=== PATIENT | female | born 1975 | race Caucasian/White ===

== ENCOUNTER 2016-06-02 17:52 | Emergency (ER) | payer BC ==
--- NOTE | 2016-06-02 18:25 | ER Document Report ---
ED Medical Screen (RME) - General Stated Complaint: COUGH Mode of Arrival: Ambulatory Information source: Patient Notes: Patient presents to the ED for complaints of cough and fever for the past 5 days. She reports she's been vomiting with her cough sometimes. She reports cough is worse at night. Denies history of asthma COPD. TRAVEL OUTSIDE OF THE [place] IN LAST 30 DAYS: No - Related Data Allergies/Adverse Reactions: Penicillins Allergy (Verified 02/28/15 12:55) Sulfa (Sulfonamide Antibiotics) Allergy (Verified 02/28/15 12:55) tramadol [Tramadol] Allergy (Verified 02/28/15 12:55) Past Medical History - Past Medical History Cardiac Medical History: Reports: Hx Hypertension Denies: Hx Coronary Artery Disease, Hx Heart Attack Pulmonary Medical History: Denies: Hx Asthma, Hx Bronchitis, Hx COPD, Hx Pneumonia Neurological Medical History: Reports: Hx Migraine. Denies: Hx Cerebrovascular Accident, Hx Seizures Endocrine Medical History: Reports: Hx Hypothyroidism Musculoskeltal Medical History: Denies Hx Arthritis, Reports Hx Musculoskeletal Trauma Psychiatric Medical History: Reports: Hx Anxiety - with panic attacks Past Surgical History: Reports: Hx Cholecystectomy, Hx Orthopedic Surgery - left knee - Immunizations Immunizations up to date: Yes Hx Diphtheria, Pertussis, Tetanus Vaccination: Yes
[2016-06-02] MEDS ORDERED: HYDROCODONE/ACETAMINOPHEN 5-325 MG TABLET PO ONE (21:39)
[2016-06-02] MEDS ORDERED: HYDROCODONE/ACETAMINOPHEN 5-325 MG 6 TAB/DSPK PO PRN (21:39)
--- NOTE | 2016-06-02 21:43 | ER Document Report ---
ED Respiratory Problem - General Chief Complaint: Cough Stated Complaint: COUGH Time seen by provider: 21:30 Mode of Arrival: Ambulatory Notes: Patient is a 41 year old female that comes to the ED for chief complaint of cough, sinus congestion, and chills. Symptoms started 5 days ago. Cough worse at night, patient reports pressure in her sinuses, patient has green sputum production. She denies smoking, asthma, only reported past medical history is hypertension. Patient states she is taking Benadryl and Mucinex. TRAVEL OUTSIDE OF THE [place] IN LAST 30 DAYS: No - Related Data Allergies/Adverse Reactions: Penicillins Allergy (Verified 06/02/16 18:26) Sulfa (Sulfonamide Antibiotics) Allergy (Verified 06/02/16 18:26) tramadol [Tramadol] Allergy (Verified 06/02/16 18:) Past Medical History - General Information source: Patient - Social History Smoking Status: Never Smoker Chew tobacco use (# tins/day): No Frequency of alcohol use: None Drug Abuse: None Lives with: Family Family History: Arthritis, DM Patient has suicidal ideation: No Patient has homicidal ideation: No - Past Medical History Cardiac Medical History: Reports: Hx Hypertension Denies: Hx Coronary Artery Disease, Hx Heart Attack Pulmonary Medical History: Denies: Hx Asthma, Hx Bronchitis, Hx COPD, Hx Pneumonia Neurological Medical History: Reports: Hx Migraine. Denies: Hx Cerebrovascular Accident, Hx Seizures Endocrine Medical History: Reports: Hx Hypothyroidism Renal/ Medical History: Denies: Hx Peritoneal Dialysis Musculoskeltal Medical History: Denies Hx Arthritis, Reports Hx Musculoskeletal Trauma Psychiatric Medical History: Reports: Hx Anxiety - with panic attacks Past Surgical History: Reports: Hx Cholecystectomy, Hx Orthopedic Surgery - left knee - Immunizations Immunizations up to date: Yes Hx Diphtheria, Pertussis, Tetanus Vaccination: Yes Review of Systems - Review of Systems Constitutional: See HPI EENT: See HPI Cardiovascular: No symptoms reported Respiratory: See HPI Gastrointestinal: No symptoms reported Genitourinary: No symptoms reported Female Genitourinary: No symptoms reported Musculoskeletal: No symptoms reported Skin: No symptoms reported Hematologic/Lymphatic: No symptoms reported Neurological/Psychological: No symptoms reported Physical Exam - Vital signs Vitals: Temp Pulse Resp BP Pulse Ox 98.1 F 81 20 176/110 H 96 06/02/16 18:26 06/02/16 18:26 06/02/16 18:26 06/02/16 18:26 06/02/16 18:26 Interpretation: Normal - General General appearance: Appears well, Alert In distress: None - HEENT Head: Normocephalic, Atraumatic Eyes: Normal Conjunctiva: Normal Extraocular movements intact: Yes Eyelashes: Normal Pupils: PERRL Sinus: Maxillary - Tenderness over bilateral maxillary sinuses, slightly worse on the left Nasal: Normal Mouth/Lips: Normal Mucous membranes: Normal Pharynx: Normal - Respiratory Respiratory status: No respiratory distress Chest status: Nontender Breath sounds: Nonproductive cough - Occasional. No: Rhonchi, Wheezing Chest palpation: Normal - Cardiovascular Rhythm: Regular. No: Tachycardia Heart sounds: Normal auscultation, S1 appreciated, S2 appreciated Murmur: No - Abdominal Inspection: Normal Distension: No distension Bowel sounds: Normal Tenderness: Nontender. No: Tender, Guarding Organomegaly: No organomegaly - Back Back: Normal, Nontender - Extremities General upper extremity: Normal inspection, Nontender, Normal color, Normal ROM , Normal temperature General lower extremity: Normal inspection, Nontender, Normal color, Normal ROM , Normal temperature, Normal weight bearing. No: Marshall's sign - Neurological Neuro grossly intact: Yes Cognition: Normal Orientation: AAOx4 Tanya Coma Scale Eye Opening: Spontaneous Tanya Coma Scale Verbal: Oriented [place] Coma Scale Motor: Obeys Commands [place] Coma Scale Total: 15 Speech: Normal Cranial nerves: Normal Cerebellar coordination: Normal Motor strength normal: LUE, RUE, LLE, RLE Additional motor exam normals: Equal crossing watchman Sensory: Normal - Psychological Associated symptoms: Normal affect, Normal mood - Skin Skin Temperature: Warm Skin Moisture: Dry Skin Color: Normal Course - Re-evaluation Re-evalutation: No respiratory distress, no wheezing, clear lungs on auscultation, occasional nonproductive cough, patient sounds congested, patient has tenderness over the maxillary sinuses. - Vital Signs Vital signs: Temp Pulse Resp BP Pulse Ox 98 F 87 20 147/89 H 99 06/02/16 22:00 06/02/16 22:00 06/02/16 22:00 06/02/16 22:00 06/02/16 22:00 Discharge - Discharge Clinical Impression: Cough Sinusitis Qualifiers: Sinusitis location: maxillary Chronicity: acute Recurrence: not specified as recurrent Qualified Code(s): J01.00 - Acute maxillary sinusitis, unspecified Condition: Stable Disposition: HOME, SELF-CARE Additional Instructions: The chest x-ray does not show pneumonia. Take the azithromycin antibiotic as directed along with the Flonase and dose pack as directed for sinusitis, congestion, and cough. Continue Benadryl and Mucinex. Follow-up with primary care. Return to emergency department for concerning or worsening symptoms. Prescriptions: Azithromycin [Zithromax 250 mg Tablet] 250 mg PO ASDIR PRN #6 tablet PRN Reason: Fluticasone Propionate [Flonase Nasal [place] 50 Mcg/[place] 16 gm] 2 sprays NASL Q12 #1 inhaler
[2016-06-02 22:12] VITALS: BP 147/89
== END 2016-06-02 22:12 | disposition home or self-care (01) ==
LOC: ER 17:52
DX: J01.00 Acute maxillary sinusitis, unspecified (principal); R05 Cough; R09.81 Nasal congestion; I10 Essential (primary) hypertension
CPT/HCPCS: 71020; 99283

== ENCOUNTER 2016-07-09 14:50 | Emergency (ER) | payer BC ==
[2016-07-09] MEDS ORDERED: NORMAL SALINE 1000 ML 1,000 ML IV ONE (14:56)
[2016-07-09] MEDS ORDERED: ONDANSETRON 4 MG TAB.RAPDIS PO ONE (14:56)
--- NOTE | 2016-07-09 14:56 | ER Document Report ---
ED Medical Screen (RME) - General Stated Complaint: DIZZY/NAUSEA Mode of Arrival: Ambulatory Information source: Patient Notes: Patient presents complaining of dizziness and lightheadedness that started today. Patient complains of right-sided abdominal cramping that started today. Patient with nausea, vomiting 2 and diarrhea 4. Patient reports low-grade fever. hx: Migraines I have greeted and performed a rapid initial assessment of this patient. A comprehensive ED assessment and evaluation of the patient, analysis of test results and completion of the medical decision making process will be conducted by additional ED providers. TRAVEL OUTSIDE OF THE [place] IN LAST 30 DAYS: No - Related Data Allergies/Adverse Reactions: Penicillins Allergy (Verified 07/09/16 14:54) Sulfa (Sulfonamide Antibiotics) Allergy (Verified 07/09/16 14:54) tramadol [Tramadol] Allergy (Verified 07/09/16 14:54) Past Medical History - Past Medical History Cardiac Medical History: Reports: Hx Hypertension Denies: Hx Coronary Artery Disease, Hx Heart Attack Pulmonary Medical History: Denies: Hx Asthma, Hx Bronchitis, Hx COPD, Hx Pneumonia Neurological Medical History: Reports: Hx Migraine. Denies: Hx Cerebrovascular Accident, Hx Seizures Endocrine Medical History: Reports: Hx Hypothyroidism Renal/ Medical History: Denies: Hx Peritoneal Dialysis Musculoskeltal Medical History: Denies Hx Arthritis, Reports Hx Musculoskeletal Trauma Psychiatric Medical History: Reports: Hx Anxiety - with panic attacks Past Surgical History: Reports: Hx Cholecystectomy, Hx Orthopedic Surgery - left knee - Immunizations Immunizations up to date: Yes Hx Diphtheria, Pertussis, Tetanus Vaccination: Yes Physical Exam - Cardiovascular Rhythm: Tachycardia Heart sounds: S1 appreciated, S2 appreciated Murmur: No
[2016-07-09 15:22] LABS: ABSOLUTE BASOPHILS # (AUTO) 0.1 10^3/uL (0.0-0.2); ABSOLUTE EOSINOPHILS # (AUTO) 0.1 10^3/uL (0.0-0.6); ABSOLUTE LYMPHOCYTES (AUTO) 2.2 10^3/uL (0.5-4.7); ABSOLUTE NEUT (AUTO) 4.8 10^3/uL (1.7-8.2); BASOPHILS % (AUTO) 0.9 % (0-2); EOSINOPHILS % (AUTO) 1.1 % (0-6); HEMOGLOBIN 16.5 g/dL (12.0-15.5); HGB HCT DIFFERENCE 1.5; MEAN CORPUSCULAR HEMOGLOBIN 29.3 pg (27.0-33.4); MEAN CORPUSCULAR HGB CONC 34.4 g/dL (32.0-36.0); MEAN CORPUSCULAR VOLUME 85 fl (80-97); MONOCYTES % (AUTO) 12.6 % (3-13); RED BLOOD COUNT 5.64 10^6/uL (3.72-5.28); RED CELL DISTRIBUTION WIDTH 13.8 % (11.5-14.0); SEGMENTED NEUTROPHILS % (AUTO) 58.4 % (42-78); WHITE BLOOD COUNT 8.2 10^3/uL (4.0-10.5)
[2016-07-09 15:29] LABS: APPEARANCE,URINE CLOUDY; BILIRUBIN,URINE NEGATIVE (NEGATIVE); GLUCOSE, URINE NEGATIVE (NEGATIVE); KETONES,URINE NEGATIVE (NEGATIVE); LEUKOCYTE ESTERASE,URINE TRACE (NEGATIVE); NITRITE,URINE NEGATIVE (NEGATIVE); PROTEIN,URINE 30 mg/dL (NEGATIVE); URINE SPECIFIC GRAVITY 1.031; UROBILINOGEN,URINE NEGATIVE mg/dL (<2.0)
[2016-07-09 15:45] LABS: ALANINE AMINOTRANSFERASE 60 U/L (9-52); ALBUMIN 4.2 g/dL (3.5-5.0); ALKALINE PHOSPHATASE 79 U/L (38-126); ANION GAP 13 (5-19); ASPARTATE AMINO TRANSFERASE 30 U/L (14-36); BILIRUBIN,TOTAL 0.5 mg/dL (0.2-1.3); BLOOD UREA NITROGEN 16 mg/dL (7-20); CALCIUM 10.5 mg/dL (8.4-10.2); CARBON DIOXIDE 28 mmol/L (22-30); CHLORIDE 100 mmol/L (98-107); CREATININE RESULT 0.89 mg/dL (0.52-1.25); GLUCOSE 126 mg/dL (75-110); LIPASE 107.7 U/L (23-300); POTASSIUM 4.9 mmol/L (3.6-5.0); SODIUM 140.9 mmol/L (137-145); TOTAL PROTEIN 8.1 g/dL (6.3-8.2)
[2016-07-09] MEDS ORDERED: NORMAL SALINE 1000 ML 2,000 ML IV ONE (16:15)
--- NOTE | 2016-07-09 17:40 | ER Document Report ---
ED General <CALIN BAZZILINE - Last Filed: 07/09/16 19:32> - General Time seen by provider: 16:15 Mode of Arrival: Ambulatory Information source: Patient TRAVEL OUTSIDE OF THE [place] IN LAST 30 DAYS: No <NATALY GIORDANO - Last Filed: 07/09/16 20:50> - General Chief Complaint: Nausea/Vomiting/Diarrhea Stated Complaint: DIZZY/NAUSEA Notes: 41-year-old female complaining of head congestion, cough for several days with dizziness and lightheadedness that started today. Patient complains of right- sided abdominal cramping that started today every few hours lasting 2-3 minutes. Patient with nausea, vomiting 2 and diarrhea 4. Low grade fever. No history of Crohn's, colitis. Parent have diverticulitis. (NATALY GIORDANO) - Related Data Allergies/Adverse Reactions: Penicillins Allergy (Verified 07/09/16 14:54) Sulfa (Sulfonamide Antibiotics) Allergy (Verified 07/09/16 14:54) tramadol [Tramadol] Allergy (Verified 07/09/16 14:54) Past Medical History - General Information source: Patient - Social History Smoking Status: Never Smoker Chew tobacco use (# tins/day): No Frequency of alcohol use: None Drug Abuse: None Lives with: Family Family History: Arthritis, DM Patient has suicidal ideation: No Patient has homicidal ideation: No - Past Medical History Cardiac Medical History: Reports: Hx Hypertension Neurological Medical History: Reports: Hx Migraine Endocrine Medical History: Reports: Hx Hypothyroidism Renal/ Medical History: Denies: Hx Peritoneal Dialysis Musculoskeltal Medical History: Reports Hx Musculoskeletal Trauma Psychiatric Medical History: Reports: Hx Anxiety - with panic attacks Past Surgical History: Reports: Hx Cholecystectomy, Hx Orthopedic Surgery - left knee - Immunizations Immunizations up to date: Yes Hx Diphtheria, Pertussis, Tetanus Vaccination: Yes <NATALY GIORDANO - Last Filed: 07/09/16 20:50> Review of Systems - Review of Systems Constitutional: See HPI EENT: See HPI Cardiovascular: No symptoms reported Respiratory: See HPI Gastrointestinal: See HPI Genitourinary: No symptoms reported Female Genitourinary: No symptoms reported Musculoskeletal: No symptoms reported Skin: No symptoms reported Hematologic/Lymphatic: No symptoms reported Neurological/Psychological: No symptoms reported <NATALY GIORDANO - Last Filed: 07/09/16 20:50> Physical Exam - Vital signs Interpretation: Hypertensive, Tachycardic - General General appearance: Alert - HEENT Head: Normocephalic, Atraumatic Eyes: Normal Conjunctiva: Normal Pupils: PERRL Mucous membranes: Dry Pharynx: Normal Neck: Supple. No: Lymphadenopathy - Respiratory Respiratory status: No respiratory distress Chest status: Nontender Breath sounds: Normal Chest palpation: Normal - Cardiovascular Rhythm: Regular Heart sounds: Normal auscultation Murmur: No - Abdominal Inspection: Normal Distension: No distension Bowel sounds: Normal Tenderness: Nontender. No: Tender Organomegaly: No organomegaly - Back Back: Normal, Nontender. No: CVA tenderness - Extremities General upper extremity: Normal inspection, Nontender, Normal color, Normal ROM , Normal temperature General lower extremity: Normal inspection, Nontender, Normal color, Normal ROM , Normal temperature, Normal weight bearing. No: Marshall's sign - Neurological Neuro grossly intact: Yes Cognition: Normal Orientation: AAOx4 [place] Coma Scale Eye Opening: Spontaneous [place] Coma Scale Verbal: Oriented [place] Coma Scale Motor: Obeys Commands [place] Coma Scale Total: 15 Speech: Normal Motor strength normal: LUE, RUE, LLE, RLE Sensory: Normal - Psychological Associated symptoms: Normal affect, Normal mood - Skin Skin Temperature: Warm Skin Moisture: Dry Skin Color: Normal Skin irregularity: negative: Rash <NATALY GIORDANO - Last Filed: 07/09/16 20:50> - Vital signs Vitals: Temp Pulse Resp BP Pulse Ox 97.9 F 126 H 18 158/100 H 96 07/09/16 14:55 07/09/16 14:55 07/09/16 14:55 07/09/16 14:55 07/09/16 14:55 (SIMÓN BAZZI) (NATALY GIORDANO) Course - Laboratory Result Diagrams: 07/09/16 15:00 07/09/16 15:00 <SIMÓN BAZZI - Last Filed: 07/09/16 19:32> - Laboratory Result Diagrams: 07/09/16 15:00 07/09/16 15:00 <NATALY GIORDANO - Last Filed: 07/09/16 20:50> - Re-evaluation Re-evalutation: 07/09/16 19:33 Patient requested a prescription for Zofran before being discharged. She had been given Zofran during her visit here so the prescription was written. ( SIMÓN BAZZI) 07/09/16 17:41 Patient feels a lot better to the IV fluid. She is still having the right upper quadrant to right lower quadrant abdominal cramp but it only lasts 1 minute she's had it twice since I first evaluated her. Abdomen is still nontender. 1+ bacteria in the urine and the urine culture is pending. 07/09/16 18:30 Consult STEPHANI Gutierrez to go home. vitals stable. (NATALY GIORDANO) - Vital Signs Vital signs: Temp Pulse Resp BP Pulse Ox 97.7 F 83 15 137/68 H 100 07/09/16 19:19 07/09/16 19:19 07/09/16 19:19 07/09/16 19:19 07/09/16 19:19 (SIMÓN BAZZI) (NATALY GIORDANO) - Laboratory Laboratory results interpreted by me: 07/09/16 07/09/16 07/09/16 15:00 15:00 15:00 RBC 5.64 H Hgb 16.5 H Hct 48.0 H Glucose 126 H Calcium 10.5 H ALT 60 H Urine Protein 30 H Urine Blood SMALL H Ur Leukocyte Esterase TRACE H Urine Ascorbic Acid 20 H (SIMÓN BAZZI) (NATALY GIORDANO) Discharge <SIMÓN BAZZI - Last Filed: 07/09/16 19:32> <NATALY GIORDANO - Last Filed: 07/09/16 20:50> - Discharge Clinical Impression: Nausea vomiting and diarrhea, crampy abdominal pain Upper respiratory infection Qualifiers: URI type: unspecified URI Qualified Code(s): J06.9 - Acute upper respiratory infection, unspecified Urinary tract infection Qualifiers: Urinary tract infection type: site unspecified Hematuria presence: without hematuria Qualified Code(s): N39.0 - Urinary tract infection, site not specified Condition: Good Disposition: HOME, SELF-CARE Instructions: Urinary Tract Infection ([facility]), Intravenous (IV) Fluids ([facility]), Vomiting ([facility]), Diarrhea, Nonspecific ([facility]), Ciprofloxacin ([facility]) Additional Instructions: plenty of fluids advance diet as tolerated to er if worse urine cutlure is pending Prescriptions: Ciprofloxacin HCl [Cipro 500 mg Tablet] 500 mg PO BID #6 tablet Ondansetron [Zofran Odt 4 mg Tablet] 1 tab PO Q6H #15 [email or web address] Referrals: SIOMARA GILL PA [Primary Care Provider] - Follow up as needed
[2016-07-09] MEDS ORDERED: CIPROFLOXACIN HCL 500 MG TABLET PO ONE (17:46)
[2016-07-09 19:21] VITALS: BP 137/68
== END 2016-07-09 19:05 | disposition home or self-care (01) ==
LOC: ER 14:50
DX: J06.9 Acute upper respiratory infection, unspecified (principal); N39.0 Urinary tract infection, site not specified; R11.2 Nausea with vomiting, unspecified; R19.7 Diarrhea, unspecified; R42 Dizziness and giddiness; R09.81 Nasal congestion; R05 Cough
CPT/HCPCS: 99284; 36415; 87086; 83690; 84703; 85025; 80053; 81001; S0119; J7030

== ENCOUNTER 2016-07-20 19:42 | Emergency (ER) | payer BC ==
--- NOTE | 2016-07-20 20:12 | ER Document Report ---
ED Medical Screen (RME) - General Stated Complaint: BACK PAIN Notes: 41 yo female c/o pain to left upper back, under shoulder blade. pain started after bending over to shave her legs. pain is aggrevated with any movement, deep breathing. no fever, no cough. no relief with naprosyn + hx/o HTN, no meds. TRAVEL OUTSIDE OF THE [place] IN LAST 30 DAYS: No - Related Data Allergies/Adverse Reactions: Penicillins Allergy (Verified 07/09/16 14:54) Sulfa (Sulfonamide Antibiotics) Allergy (Verified 07/09/16 14:54) tramadol [Tramadol] Allergy (Verified 07/09/16 14:54) Past Medical History - Past Medical History Cardiac Medical History: Reports: Hx Hypertension Denies: Hx Coronary Artery Disease, Hx Heart Attack Pulmonary Medical History: Denies: Hx Asthma, Hx Bronchitis, Hx COPD, Hx Pneumonia Neurological Medical History: Reports: Hx Migraine. Denies: Hx Cerebrovascular Accident, Hx Seizures Endocrine Medical History: Reports: Hx Hypothyroidism Renal/ Medical History: Denies: Hx Peritoneal Dialysis Musculoskeltal Medical History: Denies Hx Arthritis, Reports Hx Musculoskeletal Trauma Psychiatric Medical History: Reports: Hx Anxiety - with panic attacks Past Surgical History: Reports: Hx Cholecystectomy, Hx Orthopedic Surgery - left knee - Immunizations Immunizations up to date: Yes Hx Diphtheria, Pertussis, Tetanus Vaccination: Yes Physical Exam - Vital signs Vitals: Temp Pulse Resp BP Pulse Ox 97.7 F 106 H 16 150/88 H 98 07/20/16 19:45 07/20/16 19:45 07/20/16 19:45 07/20/16 19:45 07/20/16 19:45 Course - Vital Signs Vital signs: Temp Pulse Resp BP Pulse Ox 97.7 F 106 H 16 150/88 H 98 07/20/16 19:45 07/20/16 19:45 07/20/16 19:45 07/20/16 19:45 07/20/16 19:45
[2016-07-20] MEDS ORDERED: LIDOCAINE 5% (700 MG) TRANSDERMAL ADH..PATCH TP ONE (23:08)
--- NOTE | 2016-07-20 23:52 | ER Document Report ---
ED General - General Chief Complaint: Back Pain Stated Complaint: BACK PAIN Notes: Patient is a 41-year-old female who presents with 5 days of left-sided mid thoracic pain. Describes the pain as a sharp, stabbing pain. States she's been trying naproxen at home with minimal improvement of the pain. Denies history of similar symptoms in the past. States it started after she was bending over and stood up quickly and she subsequently heard a "pop" and has pain since that time. Nothing worsens or pain other than moving. Denies any associated shortness of breath, hemoptysis, history of DVT or pulmonary embolus , or use of estrogen. She has not seen her primary care doctor regarding today' s concerns. Denies any weakness or numbness. TRAVEL OUTSIDE OF THE [place] IN LAST 30 DAYS: No - Related Data Allergies/Adverse Reactions: Penicillins Allergy (Verified 07/09/16 14:54) Sulfa (Sulfonamide Antibiotics) Allergy (Verified 07/09/16 14:54) tramadol [Tramadol] Allergy (Verified 07/09/16 14:54) Home Medications: Current Home Medications Sumatriptan Succinate [Imitrex 100 Mg Tablet] 100 mg PO PRN PRN 07/20/16 [ History] Past Medical History - General Information source: Patient - Social History Smoking Status: Never Smoker Chew tobacco use (# tins/day): No Frequency of alcohol use: None Drug Abuse: None Lives with: Family Family History: Arthritis, DM Patient has suicidal ideation: No Patient has homicidal ideation: No - Past Medical History Cardiac Medical History: Reports: Hx Hypertension Denies: Hx Coronary Artery Disease, Hx Heart Attack Pulmonary Medical History: Denies: Hx Asthma, Hx Bronchitis, Hx COPD, Hx Pneumonia Neurological Medical History: Reports: Hx Migraine. Denies: Hx Cerebrovascular Accident, Hx Seizures Endocrine Medical History: Reports: Hx Hypothyroidism Renal/ Medical History: Denies: Hx Peritoneal Dialysis Musculoskeltal Medical History: Denies Hx Arthritis, Reports Hx Musculoskeletal Trauma Psychiatric Medical History: Reports: Hx Anxiety - with panic attacks Past Surgical History: Reports: Hx Cholecystectomy, Hx Orthopedic Surgery - left knee - Immunizations Immunizations up to date: Yes Hx Diphtheria, Pertussis, Tetanus Vaccination: Yes Review of Systems - Review of Systems Notes: Constitutional: Negative for fever. HENT: Negative for sore throat. Eyes: Negative for visual changes. Cardiovascular: Negative for chest pain. Respiratory: Negative for shortness of breath. Gastrointestinal: Negative for abdominal pain, vomiting or diarrhea. Genitourinary: Negative for dysuria. Musculoskeletal: Positive for back pain. Skin: Negative for rash. Neurological: Negative for headaches, weakness or numbness. 10 point ROS negative except as marked above and in HPI. Physical Exam - Vital signs Vitals: Temp Pulse Resp BP Pulse Ox 97.7 F 106 H 16 150/88 H 98 07/20/16 19:45 07/20/16 19:45 07/20/16 19:45 07/20/16 19:45 07/20/16 19:45 Interpretation: Tachycardic Notes: PHYSICAL EXAMINATION: GENERAL: Well-appearing, well-nourished and in no acute distress. HEAD: Atraumatic, normocephalic. EYES: Pupils equal round and reactive to light, extraocular movements intact, sclera anicteric, conjunctiva are normal. ENT: nares patent, oropharynx clear without exudates. Moist mucous membranes. NECK: Normal range of motion, supple without lymphadenopathy LUNGS: Breath sounds clear to auscultation bilaterally and equal. No wheezes rales or rhonchi. HEART: Regular rate and rhythm without murmurs ABDOMEN: Soft, nontender, normoactive bowel sounds. No guarding, no rebound. No masses appreciated. EXTREMITIES: Normal range of motion, no pitting or edema. No cyanosis. Back: Pain on palpation of the left perilumbar spine. No midline step-offs or deformities. NEUROLOGICAL: 5 out of 5 strength both distally and proximally bilateral lower extremities. 2+ patellar reflexes bilaterally. No clonus. Sensation grossly intact in the bilateral lower extremities. Patient is able to ambulate without difficulty. PSYCH: Normal mood, normal affect. SKIN: Warm, Dry, normal turgor, no rashes or lesions noted. Course - Re-evaluation Re-evalutation: 07/20/16 23:51 Presentation of a well appearing patient complaining of acute pain. No rapid progression of symptoms, systemic symptoms including fevers, chills, weight loss , history of recent bacterial infection, bilateral symptoms, numbness, weakness , difficulty walking, urinary retention or bowel incontinence, personal history of cancer, immunosuppression, diabetes, known AAA, or history of IV drug use. Exam is without point tenderness over vertebral bodies, pulsatile abdominal mass , and patient has symmetric and intact lower extremity strength, sensation, and reflexes without clonus. 2+ symmetric medial malleolar and dorsalis pedis pulses Based on history and physical, I have a very low suspicion of a concerning etiology of pain including epidural compression syndrome, spinal infection, transverse myelitis, malignancy, abdominal aortic aneurysm, renal colic, acute lower extremity claudication, neurogenic claudication, ankylosing spondylitis, or other intra-abdominal process. Due to absence of concerning risk factors in history and physical as well as absence of rapidly progressive, severe, or bilateral symptoms, will defer imaging at this point. Plan to manage conservatively with outpatient analgesia, analgesia, and physical therapy. - Acetaminophen 650 q 4 + ibuprofen 600 q 6 - Continue normal daily activities as tolerated by pain - Provide with standard musculoskeletal back pain exercise instructions - Instruct to follow up with primary care provider if symptoms not improving - Provide careful return precautions and concerning symptoms to watch for. - Vital Signs Vital signs: Temp Pulse Resp BP Pulse Ox 97.7 F 84 16 144/58 H 98 07/20/16 19:45 07/21/16 00:00 07/21/16 00:00 07/21/16 00:00 07/21/16 00:00 Discharge - Discharge Clinical Impression: Left-sided thoracic back pain Qualifiers: Chronicity: acute Qualified Code(s): M54.6 - Pain in thoracic spine Condition: Good Disposition: HOME, SELF-CARE Additional Instructions: You have been seen in the Emergency Department (ED) today for back pain. Your workup and exam have not shown any acute abnormalities and you are likely suffering from muscle strain or possible problems with your discs, but there is no treatment that will fix your symptoms at this time. Please take the naproxen that has been prescribed as directed. You should also purchase a local lidocaine cream such as "aspercreme with lidocaine" and use per bottle instructions to the affected area. Apply heat to the area as often as you are able. Continue to keep active and avoid prolonged periods of bed rest. Please follow up with your doctor as soon as possible regarding today's ED visit and your back pain. Return to the ED for worsening back pain, fever, weakness or numbness of either leg, or if you develop either (1) an inability to urinate or have bowel movements, or (2) loss of your ability to control your bathroom functions (if you start having "accidents"), or if you develop other new symptoms that concern you.concern you. Prescriptions: Naproxen 500 mg PO Q8HP PRN #30 tablet PRN Reason: Naproxen 500 mg PO BID #60 tablet
[2016-07-21 01:28] VITALS: BP 144/58
== END 2016-07-21 00:03 | disposition home or self-care (01) ==
LOC: ER 19:42
DX: M54.6 Pain in thoracic spine (principal); M54.9 Dorsalgia, unspecified; Z79.899 Other long term (current) drug therapy
CPT/HCPCS: 99283

== ENCOUNTER 2016-11-05 23:29 | Emergency (ER) | payer OTHER, BC ==
[2016-11-06] MEDS ORDERED: IBUPROFEN 600 MG TABLET PO ONE (02:07)
[2016-11-06] MEDS ORDERED: HYDROCODONE/ACETAMINOPHEN 5-325 MG TABLET PO ONE (02:07)
[2016-11-06] MEDS ORDERED: ONDANSETRON 4 MG TAB.RAPDIS PO ONE (02:10)
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
[2016-11-06 03:34] VITALS: BP 124/76
== END 2016-11-06 03:33 | disposition home or self-care (01) ==
LOC: ER 23:29
DX: S80.811A Abrasion, right lower leg, initial encounter (principal); S20.212A Contusion of left front wall of thorax, initial encounter; R07.89 Other chest pain; M54.9 Dorsalgia, unspecified; M79.604 Pain in right leg; M79.605 Pain in left leg; V87.7XXA Person injured in collision between other specified motor vehicles (traffic), initial encounter
CPT/HCPCS: 99284; 71020; 73590; S0119

== ENCOUNTER 2016-11-12 21:00 | Emergency (ER) | payer BC, OTHER ==
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
[2016-11-12] MEDS ORDERED: HYDROCODONE/ACETAMINOPHEN 5-325 MG TABLET PO ONE (23:27)
[2016-11-12] MEDS ORDERED: CLINDAMYCIN HCL 150 MG CAPSULE PO ONE (23:27)
[2016-11-12 23:49] VITALS: BP 164/93
== END 2016-11-12 23:49 | disposition home or self-care (01) ==
LOC: ER 21:00
DX: S80.811S Abrasion, right lower leg, sequela (principal); L03.90 Cellulitis, unspecified; R60.0 Localized edema; M79.89 Other specified soft tissue disorders; R20.0 Anesthesia of skin; V87.7XXS Person injured in collision between other specified motor vehicles (traffic), sequela
CPT/HCPCS: 99283

== ENCOUNTER 2016-11-21 22:18 | Emergency (ER) | payer BC, OTHER ==
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
[2016-11-22 02:27] VITALS: BP 145/86
== END 2016-11-22 02:26 | disposition home or self-care (01) ==
LOC: ER 22:18
DX: S80.11XA Contusion of right lower leg, initial encounter (principal); R20.0 Anesthesia of skin; V89.2XXA Person injured in unspecified motor-vehicle accident, traffic, initial encounter; E03.9 Hypothyroidism, unspecified; E78.00 Pure hypercholesterolemia, unspecified; I10 Essential (primary) hypertension; Z88.0 Allergy status to penicillin; Z88.2 Allergy status to sulfonamides; Z90.49 Acquired absence of other specified parts of digestive tract
CPT/HCPCS: 99283

== ENCOUNTER 2017-01-02 19:06 | Emergency (ER) | payer BC ==
[2017-01-02] MEDS ORDERED: DIPHENHYDRAMINE HCL 25 MG CAPSULE PO ONE (19:57)
[2017-01-02] MEDS ORDERED: PROCHLORPERAZINE MALEATE 10 MG TABLET PO ONE (19:57)
[2017-01-02] MEDS ORDERED: HYDROCODONE/ACETAMINOPHEN 5-325 MG TABLET PO ONE (19:57)
--- NOTE | 2017-01-02 19:58 | ER Document Report ---
ED Medical Screen (RME) - General Chief Complaint: Headache Stated Complaint: HEADACHE/BLURRED VISION Time Seen by Provider: 01/02/17 19:50 Notes: 41-year-old female with migraine headache since last night. There is some nausea and vomiting. Her sumatriptan did not work this time. There is some blurry vision. The headache is predominantly right-sided. I have greeted and performed a rapid initial assessment of this patient. A comprehensive ED assessment and evaluation of the patient, analysis of test results and completion of the medical decision making process will be conducted by additional ED providers. TRAVEL OUTSIDE OF THE [place] IN LAST 30 DAYS: No - Related Data Allergies/Adverse Reactions: Penicillins Allergy (Verified 11/12/16 21:37) Sulfa (Sulfonamide Antibiotics) Allergy (Verified 11/12/16 21:37) tramadol [Tramadol] Allergy (Verified 11/12/16 21:37) Past Medical History - Social History Frequency of alcohol use: Occasional Drug Abuse: None - Past Medical History Cardiac Medical History: Reports: Hx Hypercholesterolemia, Hx Hypertension Denies: Hx Coronary Artery Disease, Hx Heart Attack Pulmonary Medical History: Denies: Hx Asthma, Hx Bronchitis, Hx COPD, Hx Pneumonia Neurological Medical History: Reports: Hx Migraine. Denies: Hx Cerebrovascular Accident, Hx Seizures Endocrine Medical History: Reports: Hx Hypothyroidism Renal/ Medical History: Denies: Hx Peritoneal Dialysis Musculoskeltal Medical History: Denies Hx Arthritis, Reports Hx Musculoskeletal Trauma Psychiatric Medical History: Reports: Hx Anxiety - with panic attacks Past Surgical History: Reports: Hx Cholecystectomy, Hx Orthopedic Surgery - left knee, Hx Tonsillectomy - Immunizations Immunizations up to date: Yes Hx Diphtheria, Pertussis, Tetanus Vaccination: Yes Physical Exam - Vital signs Vitals: Temp Pulse Resp BP Pulse Ox 98.6 F 100 22 H 174/94 H 97 01/02/17 19:20 01/02/17 19:20 01/02/17 19:20 01/02/17 19:20 01/02/17 19:20 Course - Vital Signs Vital signs: Temp Pulse Resp BP Pulse Ox 98.6 F 100 22 H 174/94 H 97 01/02/17 19:20 01/02/17 19:20 01/02/17 19:20 01/02/17 19:20 01/02/17 19:20
[2017-01-02] MEDS ORDERED: ONDANSETRON 4 MG TAB.RAPDIS PO ONE (21:48)
--- NOTE | 2017-01-02 21:55 | ER Document Report ---
HPI - HPI Pain Level: 2 Notes: Patient is a 41-year-old female with a history of migraines who presents the ED complaining of a right-sided headache with occasional blurriness 1 day. Patient states that she did take her sumatriptan without any relief. Patient states that this headache does feel like a typical migraine. Patient admits to nausea and vomiting, and has vomited twice since arrival. Otherwise patient states that she is able to drink fluids without any difficulties. Her PCM is at [facility]. Patient denies any other significant past medical history. She denies any smoking or drug use. Patient denies any focal neurological deficits. Denies any injury, neck pain, neck stiffness. Denies any fever, eye redness/discharge, eye pain, head injury, neck pain/stiffness, changes in speech /mentation/hearing, URI, sore throat, chest pain, palpitations, syncope, cough, shortness of breath, wheeze, dyspnea, abdominal pain, diarrhea, urinary retention, dysuria, hematuria, loss of control of bowel or bladder, numbness/ tingling, saddle anesthesia, muscle paralysis/weakness, seizure, or rash. Patient denies any recent illness, exposure to sick contacts, or travel. Patient denies any other possibility of as her has had a vasectomy and she has not been sexually active in well over 2mos. patient states that she has been seen previously by neurology for her migraines. - ROS Notes: REVIEW OF SYSTEMS: CONSTITUTIONAL : Denies fever, chills, or sweats. Denies recent illness. EENT: see hpi. Denies ear, throat, or mouth pain or symptoms. Denies nasal or sinus congestion or discharge. Denies throat, tongue, or mouth swelling or difficulty swallowing. CARDIOVASCULAR: Denies chest pain. Denies palpitations or racing or irregular heart beat. Denies ankle edema. RESPIRATORY: Denies cough, cold, or chest congestion. Denies shortness of breath, difficulty breathing, or wheezing. GASTROINTESTINAL: see hpi GENITOURINARY: Denies difficulty urinating, painful urination, burning, frequency, blood in urine, or discharge. MUSCULOSKELETAL: Denies back or neck pain or stiffness. Denies joint pain or swelling. SKIN: Denies rash, lesions or sores. NEUROLOGICAL: see hpi. Denies confusion or altered mental status. Denies passing out or loss of consciousness. Denies dizziness or lightheadedness. Denies weakness or paralysis or loss of use of either side. Denies problems with gait or speech. Denies sensory loss, numbness, or tingling. Denies seizures. PSYCHIATRIC: Denies anxiety or stress. Denies depression, suicidal ideation, or homicidal ideation. ALL OTHER SYSTEMS REVIEWED AND NEGATIVE. Dictation was performed using [employer] voice recognition software - REPRODUCTIVE Reproductive: DENIES: : - DERM Skin Color: Normal, [place] Past Medical History - Social History Smoking Status: Never Smoker Frequency of alcohol use: Occasional Drug Abuse: None Family History: Arthritis, DM - Past Medical History Cardiac Medical History: Reports: Hx Hypercholesterolemia, Hx Hypertension Denies: Hx Coronary Artery Disease, Hx Heart Attack Pulmonary Medical History: Denies: Hx Asthma, Hx Bronchitis, Hx COPD, Hx Pneumonia Neurological Medical History: Reports: Hx Migraine. Denies: Hx Cerebrovascular Accident, Hx Seizures Endocrine Medical History: Reports: Hx Hypothyroidism Renal/ Medical History: Denies: Hx Peritoneal Dialysis Musculoskeltal Medical History: Denies Hx Arthritis, Reports Hx Musculoskeletal Trauma Psychiatric Medical History: Reports: Hx Anxiety - with panic attacks Past Surgical History: Reports: Hx Cholecystectomy, Hx Orthopedic Surgery - left knee, Hx Tonsillectomy - Immunizations Immunizations up to date: Yes Hx Diphtheria, Pertussis, Tetanus Vaccination: Yes Vertical Provider Document - CONSTITUTIONAL Agree With Documented VS: Yes Notes: PHYSICAL EXAMINATION: GENERAL: Well-appearing, well-nourished and in no acute distress. HEAD: Atraumatic, normocephalic. EYES: Pupils equal round and reactive to light, extraocular movements intact, sclera anicteric, conjunctiva are normal. Visual light intact. N obvious papilledema; limited due to non-dilatation. ENT: EAC clear b/l. TM's intact b/l without erythema, fluid, or perforation. Nares patent and without discharge. oropharynx clear without exudates. No tonsilar hypertrophy or erythema. Moist mucous membranes. No sinus tenderness. NECK: Normal range of motion, supple without lymphadenopathy. No rigidity/ meningismus. LUNGS: Breath sounds clear to auscultation bilaterally and equal. No wheezes rales or rhonchi. HEART: Regular rate and rhythm without murmurs, rubs, gallops. ABDOMEN: Soft, nontender, nondistended abdomen. No guarding, no rebound. No masses appreciated. Normal bowel sounds present. No CVA tenderness bilaterally. Musculoskeletal: Ext b/l: FROM to passive/active. Strength 5+/5. No focal deficits Extremities: No cyanosis, clubbing, or edema b/l. Peripheral pulses 2+. Capillary refill less than 3 seconds. NEUROLOGICAL: MMSE intact. Cranial nerves grossly intact. Normal speech, normal gait. Normal sensory, motor exams. Pronator drift neg. LORNE's intact. Heel/ryan, finger/nose intact. [place] neg. PSYCH: Normal mood, normal affect. SKIN: Warm, Dry, normal turgor, no rashes or lesions noted. - INFECTION CONTROL TRAVEL OUTSIDE OF THE [place] IN LAST 30 DAYS: No - RESPIRATORY O2 Sat by Pulse Oximetry: 97 Course - Re-evaluation Re-evalutation: 01/02/17 21:55 Patient is an afebrile, well-hydrated, 41-year-old female who presents the ED with a headache, suspect migraine based on H&P. Vitals are stable. PE otherwise unremarkable for any focal neurological deficits. Low suspicion for any acute glaucoma, temporal arteritis, meningitis, intracranial hemorrhage, ischemic stroke, or fracture at this time. Patient is aware that his condition can change from initial presentation and that he needs to monitor symptoms closely for any acute changes. Headache did improve after medication was given Compazine, [place], and Benadryl. Zofran given prior to discharge nausea. I will send her home with a prescription for Zofran as well. Patient states that she now just feels tired and is ready to go home and is feeling better than her arrival. Conservative measures otherwise for symptoms. Advised recheck with PCM in 2-3 days. Consider consult with a neurologist. Return to ED with any worsening/concerning symptoms otherwise as reviewed in discharge. Patient is in agreement. - Vital Signs Vital signs: Temp Pulse Resp BP Pulse Ox 98.6 F 100 22 H 174/94 H 97 01/02/17 19:20 01/02/17 19:20 01/02/17 19:20 01/02/17 19:20 01/02/17 19:20 Discharge - Discharge Clinical Impression: Headache Qualifiers: Headache type: unspecified Headache chronicity pattern: acute headache Intractability: not intractable Qualified Code(s): R51 - Headache Condition: Stable Disposition: HOME, SELF-CARE Instructions: Intravenous Compazine for Headaches ([facility]), Use of Diphenhydramine , Oral Narcotic Medication ([facility]), Antinausea Medication ([facility]) Additional Instructions: Maintain adequate fluid intake Take medications as directed/needed [id number] meds as needed Use your abortive medications as needed Monitor symptoms closely Recheck with your PCM in 2-3 days Consider consult with neurology Return to the ED with any worsening symptoms and/or development of fever, headache, neck pain/stiffness, vision loss, eye pain, changes in speech/ mentation/hearing/balance, chest pain, palpitations, syncope, shortness of breath, trouble breathing, abdominal pain, n/v/d, blood in stool/urine, loss of control of bowel/bladder, urinary retention, muscle weakness/paralysis, numbness /tingling, or other worsening symptoms that are concerning to you. Prescriptions: Ondansetron [Zofran Odt 4 mg Tablet] 1 - 2 tab PO Q4H PRN #15 tab.rapdis PRN Reason: For Nausea/Vomiting Forms: Elevated Blood Pressure Referrals: Eddie Whaley [Other] - Follow up in 3-5 days Teodora Araiza [Other] - Follow up in 3-5 days
[2017-01-02 22:36] VITALS: BP 143/87
== END 2017-01-02 22:33 | disposition home or self-care (01) ==
LOC: ER 19:06
DX: R51 Headache (principal); Z79.899 Other long term (current) drug therapy
CPT/HCPCS: 99283; S0119; S0183

== ENCOUNTER 2017-07-17 10:22 | Emergency (ER) | payer BC ==
[2017-07-17 10:27] VITALS: BP 143/91
[2017-07-17] MEDS ORDERED: LIDOCAINE 5% (700 MG) TRANSDERMAL ADH..PATCH TP ONE (10:58)
--- NOTE | 2017-07-17 11:01 | ER Document Report ---
HPI - HPI Patient complains to provider of: knee pain Onset: Other - Chronic, worse over the past few days Onset/Duration: Worse Quality of pain: Achy Pain Level: 2 Context: Patient complains of chronic right knee pain after multiple injuries over the past 15 years. Patient denies any new recent injury. Patient states that the pain he will occasionally give out. Patient states that she had an appointment for an MRI but missed the appointment and has not rescheduled. Associated Symptoms: Other - Right knee pain Exacerbated by: Standing, Movement, Walking Relieved by: Denies Similar symptoms previously: Yes Recently seen / treated by doctor: No - ROS ROS below otherwise negative: Yes Systems Reviewed and Negative: Yes All other systems reviewed and negative - CONSTITUTIONAL Constitutional: DENIES: Fever - NEURO Neurology: DENIES: Weakness - REPRODUCTIVE Reproductive: DENIES: : - MUSCULOSKELETAL Musculoskeletal: REPORTS: Extremity pain - right knee - DERM Skin Color: Normal Skin Problems: None Past Medical History - General Information source: Patient - Social History Smoking Status: Never Smoker Frequency of alcohol use: Occasional Drug Abuse: None Occupation: from home Lives with: Family Family History: Arthritis, DM Patient has suicidal ideation: No Patient has homicidal ideation: No - Past Medical History Cardiac Medical History: Reports: Hx Hypercholesterolemia, Hx Hypertension Denies: Hx Coronary Artery Disease, Hx Heart Attack Pulmonary Medical History: Denies: Hx Asthma, Hx Bronchitis, Hx COPD, Hx Pneumonia Neurological Medical History: Reports: Hx Migraine. Denies: Hx Cerebrovascular Accident, Hx Seizures Endocrine Medical History: Reports: Hx Hypothyroidism Renal/ Medical History: Denies: Hx Peritoneal Dialysis Musculoskeltal Medical History: Denies Hx Arthritis, Reports Hx Musculoskeletal Trauma Psychiatric Medical History: Reports: Hx Anxiety - with panic attacks Past Surgical History: Reports: Hx Cholecystectomy, Hx Orthopedic Surgery - left knee, Hx Tonsillectomy - Immunizations Immunizations up to date: Yes Hx Diphtheria, Pertussis, Tetanus Vaccination: Yes Vertical Provider Document - CONSTITUTIONAL Agree With Documented VS: Yes Exam Limitations: No Limitations General Appearance: WD/WN, No Apparent Distress - INFECTION CONTROL TRAVEL OUTSIDE OF THE [place] IN LAST 30 DAYS: No - HEENT HEENT: Atraumatic, Normocephalic - NECK Neck: Normal Inspection - RESPIRATORY Respiratory: Breath Sounds Normal, No Respiratory Distress O2 Sat by Pulse Oximetry: 98 - CARDIOVASCULAR Cardiovascular: Regular Rate, Regular Rhythm Pulses: Normal: Dorsalis pedis - BACK Back: Normal Inspection - MUSCULOSKELETAL/EXTREMETIES Musculoskeletal/Extremeties: MAEW, Tender - Right knee joint tenderness to the lateral inferior compartment, no obvious effusion, no laxity with varus or valgus maneuvers. Patellar tendon intact. Normal skin color and temperature overlying joint, No Edema. negative: Eccymosis - NEURO Level of Consciousness: Awake, Alert, Appropriate Motor/Sensory: No Motor Deficit - DERM Integumentary: Warm, Dry Course - Re-evaluation Re-evalutation: 07/17/17 10:59 The patient has been informed that they may have pre-hypertension or hypertension based on a blood pressure reading in the emergency department. I recommend that patient call the primary care provider listed on their discharge instructions or a physician of their choice by this week to arrange follow-up for further evaluation of possible pre-hypertension or hypertension. Controlled substance database reviewed - Vital Signs Vital signs: Temp Pulse Resp BP Pulse Ox 98.9 F 100 16 143/91 H 98 07/17/17 10:25 07/17/17 10:25 07/17/17 10:25 07/17/17 10:25 07/17/17 10:25 Procedures - Immobilization Right Knee Pre-Proc Neuro Vasc Exam: Normal Immobilizer type: Knee immobilizer Performed by: PCT Post-Proc Neuro Vasc Exam: Normal Alignment checked and good: Yes Discharge - Discharge Clinical Impression: Knee sprain Qualifiers: Encounter type: initial encounter Involved ligament of knee: unspecified ligament Laterality: right Qualified Code(s): S83.91XA - Sprain of unspecified site of right knee, initial encounter Chronic knee pain Qualifiers: Laterality: right Qualified Code(s): M25.561 - Pain in right knee Condition: Stable Disposition: HOME, SELF-CARE Instructions: Use of Crutches ([facility]), Ice & Elevation ([facility]), Suspected Internal Knee Injury ([facility]), Knee Immobilizing Splint ([facility]), Oral Narcotic Medication ([facility] ), Sprained Knee ([facility]) Additional Instructions: Return immediately for any new or worsening symptoms Followup with your primary care provider, call tomorrow to make a followup appointment Follow-up with your orthopedic doctor for further evaluation. Call today for an appointment. Call the radiology department to see about making a rescheduled appointment for your MRI. Weightbearing as tolerated Do not take your pain medication with your Xanax, only take one medication or the other. Prescriptions: Hydrocodone/Acetaminophen [[place] 5-325 Tablet] 1 each PO Q8 PRN #10 tablet PRN Reason: Forms: Elevated Blood Pressure Referrals: [facility] ([place] [Provider Group] - Follow up as needed
== END 2017-07-17 11:17 | disposition home or self-care (01) ==
LOC: ER 10:22
DX: S83.91XA Sprain of unspecified site of right knee, initial encounter (principal); X58.XXXA Exposure to other specified factors, initial encounter; M25.561 Pain in right knee; G89.29 Other chronic pain; I10 Essential (primary) hypertension
CPT/HCPCS: 99283; L1830

== ENCOUNTER → 2017-07-23 | Outpatient (CLI) | payer BC ==
--- NOTE | 2017-07-23 16:17 | RADIOLOGY REPORT (SQ) ---
EXAM DESCRIPTION: MRI LT LOWER JOINT WITHOUT COMPLETED DATE/TIME: 07/23/2017 10:58 am REASON FOR STUDY: SPRAIN OF ANTERIOR CRUCIATE LIGAMENT OF LEFT KNEE S83.512A SPRAIN OF ANTERIOR CRU CIATE LIGAMENT OF LEFT KNEE, COMPARISON: None. TECHNIQUE: Leftknee images acquired and stored on PACS. Multiplanar images include fat sensitive se quences as T1, water sensitive sequences as FST2 or STIR, cartilage sensitive sequences as FSPD, and gradient echo sequences. LIMITATIONS: Motion. Artifact associated with body habitus. FINDINGS: JOINT AND BURSAE: No effusion. BONE CORTEX AND MARROW: No alteration of signal to suggest marrow replacement. No worrisome bone lesi ons. No occult fracture. ACL: Intact. No degeneration or ganglion cyst. PCL: Intact. MCL: Intact. No periligamentous edema or fluid. LCL: Intact. No periligamentous edema or fluid. MEDIAL MENISCUS: Increased signal posterior horn without definite extension to the articular surface. LATERAL MENISCUS: No tears. No abnormal signal. MEDIAL COMPARTMENT: Cartilage preserved. No bone bruises or reactive marrow edema. No osteophytes. LATERAL COMPARTMENT: Cartilage preserved. No bone bruises or reactive marrow edema. No osteophytes. PATELLA: Thinning of the patellar cartilage. Surface blistering of the cartilage medial to midline. Intact retinaculum. EXTENSOR MECHANISM: Intact. Quadriceps and patella tendons normal. SOFT TISSUES: Adjacent muscles and subcutaneous tissues normal. Normal flow void in popliteal artery and vein. OTHER: No other significant finding. IMPRESSION: 1. Intrasubstance degeneration posterior horn medial meniscus. No definitive meniscal tear. 2. Patellar chondromalacia. TECHNICAL DOCUMENTATION: JOB ID: [id number] [employer]- All Rights Reserved Reading location - IP/workstation name: [email or web address]
== END ==
LOC: RAD 10:10
PROVIDERS: ATTEND Family Medicine
DX: S83.512A Sprain of anterior cruciate ligament of left knee, initial encounter (principal); X58.XXXA Exposure to other specified factors, initial encounter

== ENCOUNTER 2017-11-11 18:16 | Emergency (ER) | payer BC ==
[2017-11-11] MEDS ORDERED: ALPRAZOLAM 0.5 MG TABLET PO ONE (18:47)
--- NOTE | 2017-11-11 18:53 | ER Document Report ---
ED General - General Chief Complaint: Dizziness Stated Complaint: DIZZY/HEADACHE Time Seen by Provider: 11/11/17 18:40 Mode of Arrival: Ambulatory Information source: Patient Notes: 42-year-old female history of anxiety presents with complaints of insomnia over the past 2 days due to increased stress. Patient admits to dizziness and nausea intermittent headache. Patient notes headache is a sharp pain in the middle of her head and lasts for minutes at a time and then resolves TRAVEL OUTSIDE OF THE [place] IN LAST 30 DAYS: No - HPI Onset: Yesterday Onset/Duration: Sudden Quality of pain: Sharp Severity: Mild Pain Level: 1 Associated symptoms: Other Exacerbated by: Other - stress Relieved by: Denies Similar symptoms previously: No Recently seen / treated by doctor: No - Related Data Allergies/Adverse Reactions: Penicillins Allergy (Verified 11/11/17 18:17) Sulfa (Sulfonamide Antibiotics) Allergy (Verified 11/11/17 18:17) tramadol [Tramadol] Allergy (Verified 11/11/17 18:17) Past Medical History - Social History Smoking Status: Never Smoker Cigarette use (# per day): No Chew tobacco use (# tins/day): No Smoking Education Provided: No Frequency of alcohol use: Occasional Drug Abuse: None Family History: Arthritis, DM Patient has suicidal ideation: No Patient has homicidal ideation: No - Past Medical History Cardiac Medical History: Reports: Hx Hypercholesterolemia, Hx Hypertension Denies: Hx Coronary Artery Disease, Hx Heart Attack Pulmonary Medical History: Denies: Hx Asthma, Hx Bronchitis, Hx COPD, Hx Pneumonia Neurological Medical History: Reports: Hx Migraine. Denies: Hx Cerebrovascular Accident, Hx Seizures Endocrine Medical History: Reports: Hx Hypothyroidism Renal/ Medical History: Denies: Hx Peritoneal Dialysis Musculoskeltal Medical History: Denies Hx Arthritis, Reports Hx Musculoskeletal Trauma Psychiatric Medical History: Reports: Hx Anxiety - with panic attacks Past Surgical History: Reports: Hx Cholecystectomy, Hx Orthopedic Surgery - left knee, Hx Tonsillectomy - Immunizations Immunizations up to date: Yes Hx Diphtheria, Pertussis, Tetanus Vaccination: Yes Review of Systems - Review of Systems Notes: REVIEW OF SYSTEMS: CONSTITUTIONAL : Denies fever, chills, or sweats. Denies recent illness. EENT: Denies eye, ear, throat, or mouth pain or symptoms. Denies nasal or sinus congestion or discharge. Denies throat, tongue, or mouth swelling or difficulty swallowing. CARDIOVASCULAR: Denies chest pain. Denies palpitations or racing or irregular heart beat. Denies ankle edema. RESPIRATORY: Denies cough, cold, or chest congestion. Denies shortness of breath, difficulty breathing, or wheezing. GASTROINTESTINAL: Admits nausea GENITOURINARY: Denies difficulty urinating, painful urination, burning, frequency, blood in urine, or discharge. FEMALE GENITOURINARY: Denies vaginal bleeding, heavy or abnormal periods, irregular periods. Denies vaginal discharge or odor. MUSCULOSKELETAL: Denies back or neck pain or stiffness. Denies joint pain or swelling. SKIN: Denies rash, lesions or sores. HEMATOLOGIC : Denies easy bruising or bleeding. LYMPHATIC: Denies swollen, enlarged glands. NEUROLOGICAL: Admits headache dizziness PSYCHIATRIC: Admits to stress and anxiety ALL OTHER SYSTEMS REVIEWED AND NEGATIVE. PHYSICAL EXAMINATION: GENERAL: Well-appearing, well-nourished and in no acute distress. HEAD: Atraumatic, normocephalic. EYES: Pupils equal round and reactive to light, extraocular movements intact, conjunctiva are normal. ENT: Nares patent, oropharynx clear without exudates. Moist mucous membranes. NECK: Normal range of motion, supple without lymphadenopathy LUNGS: Breath sounds clear to auscultation bilaterally and equal. No wheezes rales or rhonchi. HEART: Regular rate and rhythm without murmurs ABDOMEN: Soft, nontender, nondistended abdomen. No guarding, no rebound. No masses appreciated. Female : deferred Musculoskeletal: Normal range of motion, no pitting or edema. No cyanosis. NEUROLOGICAL: Cranial nerves grossly intact. Normal speech, normal gait. Normal sensory, motor exams PSYCH: Initially patient has normal affect normal mood but upon further conversation she begins crying tearful and anxious SKIN: Warm, Dry, normal turgor, no rashes or lesions noted. Dictation was performed using [employer] voice recognition software Physical Exam - Vital signs Vitals: Temp Pulse BP Pulse Ox 98.4 F 97 152/96 H 100 11/11/17 18:20 11/11/17 18:20 11/11/17 18:20 11/11/17 18:20 Course - Re-evaluation Re-evalutation: 11/11/17 18:52 Initially my concern was for vertigo this migraine headache however the further we spoke more apparently became that this was anxiety related. Patient began crying in the room admitting that she is under a lot of stress due to custody issues and her daughter gone off to college. Patient was on Xanax in the past is not on any medications now I will give her a dose of Xanax and watch her 11/11/17 19:44 Patient notes symptoms have resolved wishes to be discharged home I will discharge home medications and close follow-up After performing a Medical Screening Examination, I estimate there is LOW risk for INTRACRANIAL HEMORRHAGE, ISCHEMIC CVA, MALIGNANT DYSRHYTHMIA, ACUTE CORONARY SYNDROME, MENINGITIS, PULMONARY EMBOLISM, or SEPSIS thus I consider the discharge disposition reasonable. I have reevaluated this patient multiple times and no significant life threatening changes are noted. The patient and I have discussed the diagnosis and risks, and we agree with discharging home with close follow-up with the understanding that symptoms and presentations can change. We also discussed returning to the Emergency Department immediately if new or worsening symptoms occur. We have discussed the symptoms which are most concerning (e.g., changing or worsening pain, weakness, vomiting, fever) that necessitate immediate return. - Vital Signs Vital signs: Temp Pulse Resp BP Pulse Ox 98.4 F 97 17 152/96 H 100 11/11/17 18:20 11/11/17 18:20 11/11/17 18:44 11/11/17 18:20 11/11/17 18:20 Discharge - Discharge Clinical Impression: Anxiety Headache Qualifiers: Headache type: unspecified Headache chronicity pattern: acute headache Intractability: not intractable Qualified Code(s): R51 - Headache Condition: Stable Disposition: HOME, SELF-CARE Instructions: Dizziness ([facility]) Prescriptions: Alprazolam [Xanax 0.5 mg Tablet] 0.5 mg PO QHS #14 tab Promethazine HCl [Phenergan 25 mg Tablet] 25 mg PO Q4HP PRN #14 tablet PRN Reason: Referrals: VI UNDERWOOD MD [Primary Care Provider] - Follow up as needed
[2017-11-11] MEDS ORDERED: PROMETHAZINE HCL 25 MG TABLET PO ONE (19:20)
[2017-11-11 19:47] VITALS: BP 138/89
== END 2017-11-11 19:48 | disposition home or self-care (01) ==
LOC: ER 18:16
DX: F41.9 Anxiety disorder, unspecified (principal); R51 Headache; R42 Dizziness and giddiness; R11.0 Nausea; I10 Essential (primary) hypertension; E03.9 Hypothyroidism, unspecified; E78.00 Pure hypercholesterolemia, unspecified; Z88.0 Allergy status to penicillin; Z90.49 Acquired absence of other specified parts of digestive tract; Z88.2 Allergy status to sulfonamides; Z88.6 Allergy status to analgesic agent
CPT/HCPCS: 99284

== ENCOUNTER 2018-05-29 20:01 | Emergency (ER) | payer BC ==
[2018-05-29 20:21] VITALS: BP 138/97
--- NOTE | 2018-05-29 20:41 | ER Document Report ---
ED General - General Chief Complaint: Flu Symptoms Stated Complaint: FLU SYMPTOMS Time Seen by Provider: 05/29/18 20:30 TRAVEL OUTSIDE OF THE [place] IN LAST 30 DAYS: No - Related Data Allergies/Adverse Reactions: Penicillins Allergy (Verified 01/18/18 18:42) Sulfa (Sulfonamide Antibiotics) Allergy (Verified 01/18/18 18:42) tramadol [Tramadol] Allergy (Verified 01/18/18 18:42) Past Medical History - Social History Smoking Status: Never Smoker Chew tobacco use (# tins/day): No Frequency of alcohol use: None Drug Abuse: None Family History: Arthritis, DM Patient has suicidal ideation: No Patient has homicidal ideation: No - Past Medical History Cardiac Medical History: Reports: Hx Hypercholesterolemia, Hx Hypertension Denies: Hx Coronary Artery Disease, Hx Heart Attack Pulmonary Medical History: Denies: Hx Asthma, Hx Bronchitis, Hx COPD, Hx Pneumonia Neurological Medical History: Reports: Hx Migraine. Denies: Hx Cerebrovascular Accident, Hx Seizures Endocrine Medical History: Reports: Hx Hypothyroidism Renal/ Medical History: Denies: Hx Peritoneal Dialysis Musculoskeletal Medical History: Denies Hx Arthritis, Reports Hx Musculoskeletal Trauma Psychiatric Medical History: Reports: Hx Anxiety - with panic attacks Past Surgical History: Reports: Hx Cholecystectomy, Hx Orthopedic Surgery - left knee, Hx Tonsillectomy - Immunizations Immunizations up to date: Yes Hx Diphtheria, Pertussis, Tetanus Vaccination: Yes Review of Systems - Review of Systems Notes: See history of present illness for pertinent positive review of systems; otherwise all review of systems have been reviewed and are negative Physical Exam - Vital signs Vitals: Temp Pulse Resp BP Pulse Ox 99.0 F 104 H 16 138/97 H 97 05/29/18 20:20 05/29/18 20:20 05/29/18 20:20 05/29/18 20:20 05/29/18 20:20 - Notes Notes: PHYSICAL EXAMINATION: GENERAL: Well-appearing and in no acute distress. HEAD: Atraumatic, normocephalic. EYES: Pupils equal round and reactive to light, extraocular movements intact, sclera anicteric, conjunctiva are normal. ENT: nares patent, oropharynx mild erythema without tonsillar swelling exudates. Moist mucous membranes. Right ear canal wall with mild erythema but no drainage or pustular lesions NECK: Normal range of motion, supple without lymphadenopathy LUNGS: CTAB and equal. No wheezes rales or rhonchi. HEART: Minimally tachycardic rate, 101-104, and regular rhythm without murmurs ABDOMEN: Soft, no tenderness. No facial grimacing/wincing upon palpation. No guarding, no rebound. EXTREMITIES: Normal range of motion, no pitting edema. No cyanosis. NEUROLOGICAL: Cranial nerves grossly intact. Normal sensory/motor exams. PSYCH: Normal mood, normal affect. SKIN: Warm, Dry, normal turgor, no rashes or lesions noted Course - Re-evaluation Re-evalutation: 05/29/18 20:41 MEDICAL DECISION MAKING: Concern for upper respiratory infection, most likely viral She does also appear to have right otitis externa so Ciprodex otic drops Will also give her a prescription for meloxicam Tessalon for her URI symptoms Instructed patient on fever control with Tylenol and/or (if applicable) Motrin Also discussed keeping hydrated with water or Gatorade/Pedialyte Instructed follow-up PCP next day or few Patient understands and agrees to the plan of care - Vital Signs Vital signs: Temp Pulse Resp BP Pulse Ox 99.0 F 104 H 16 138/97 H 97 05/29/18 20:20 05/29/18 20:20 05/29/18 20:26 05/29/18 20:20 05/29/18 20:20 Discharge - Discharge Clinical Impression: Acute URI Otitis externa of right ear Qualifiers: Otitis externa type: unspecified type Chronicity: acute Qualified Code(s): H60.501 - Unspecified acute noninfective otitis externa, right ear Condition: Good Disposition: HOME, SELF-CARE Instructions: Using Ear Drops with a Wick ([facility]) Additional Instructions: You were seen in the emergency department at [facility]. You likely have an upper respiratory infection, most likely viral. Use the antibiotic eardrops for 5 days for the ear infection. Use Motrin and/or Tylenol for fever control. You may use saline nasal spray for stuffy nose. Stay hy drated. Please followup with your primary physician in the next few days for further management/evaluation. Please return to the emergency department for worsening of symptoms or any symptom that you deem to be concerning or life- threatening. Thank you for allowing us to be part of your care. This is your school/work note for your Emergency Department evaluation today. Prescriptions: Benzonatate [Tessalon Perles 100 mg Capsule] 100 mg PO Q8HP PRN #40 capsule PRN Reason: Ciprofloxacin HCl/Dexameth [Ciprodex Otic Suspension 7.5 ml Bottle] 4 drop OT BID #1 bottle Meloxicam [Mobic] 7.5 mg PO DAILYP PRN #10 tablet PRN Reason: Referrals: VI UNDERWOOD MD [Primary Care Provider] - Follow up as needed
== END 2018-05-29 20:50 | disposition home or self-care (01) ==
LOC: ER 20:01
DX: J06.9 Acute upper respiratory infection, unspecified (principal); H60.501 Unspecified acute noninfective otitis externa, right ear; R05 Cough; R09.81 Nasal congestion; R09.89 Other specified symptoms and signs involving the circulatory and respiratory systems; J02.9 Acute pharyngitis, unspecified; R11.2 Nausea with vomiting, unspecified; R19.7 Diarrhea, unspecified; H92.01 Otalgia, right ear; I10 Essential (primary) hypertension
CPT/HCPCS: 99283

== ENCOUNTER 2018-06-05 21:26 | Emergency (ER) | payer BC ==
[2018-06-05] MEDS ORDERED: MORPHINE SULFATE 10 MG/ML INJ IV ONE (22:21)
[2018-06-05] MEDS ORDERED: ONDANSETRON HCL INJ/PF 4 MG/2 ML SDV IV ONE (22:21)
[2018-06-05] MEDS ORDERED: NORMAL SALINE 1000 ML 1,000 ML IV ONE (22:23)
--- NOTE | 2018-06-05 22:23 | ER Document Report ---
ED Medical Screen (RME) - General Chief Complaint: Nausea/Vomiting/Diarrhea Stated Complaint: VOMITING Time Seen by Provider: 06/05/18 22:20 Notes: Patient is a 43-year-old female presents to the emergency department complaining of generalized left lower abdominal pain. Patient states she has vomited over 9 times today and has also had over 15 episodes of diarrhea. Patient denies any blood in either vomit or diarrhea. Patient does admit to a subjective fever. Past medical history: None Medications: None Allergies: Penicillin Patient does have a surgical history of a cholecystectomy. ABDOMEN: Soft, Non-distended. Bowel sounds present in all 4 quadrants. Pain upon palpation left upper and left lower abdominal quadrants. No Mustafa sign noted, no CVA tenderness bilaterally. I have greeted and performed a rapid initial assessment of this patient. A comprehensive ED assessment and evaluation of the patient, analysis of test results and completion of the medical decision making process will be conducted by additional ED providers. TRAVEL OUTSIDE OF THE [place] IN LAST 30 DAYS: No - Related Data Allergies/Adverse Reactions: Penicillins Allergy (Verified 01/18/18 18:42) Sulfa (Sulfonamide Antibiotics) Allergy (Verified 01/18/18 18:42) tramadol [Tramadol] Allergy (Verified 01/18/18 18:42) Past Medical History - Past Medical History Cardiac Medical History: Reports: Hx Hypercholesterolemia, Hx Hypertension Denies: Hx Coronary Artery Disease, Hx Heart Attack Pulmonary Medical History: Denies: Hx Asthma, Hx Bronchitis, Hx COPD, Hx Pneumonia Neurological Medical History: Reports: Hx Migraine. Denies: Hx Cerebrovascular Accident, Hx Seizures Endocrine Medical History: Reports: Hx Hypothyroidism Renal/ Medical History: Denies: Hx Peritoneal Dialysis Musculoskeltal Medical History: Denies Hx Arthritis, Reports Hx Musculoskeletal Trauma Psychiatric Medical History: Reports: Hx Anxiety - with panic attacks Past Surgical History: Reports: Hx Cholecystectomy, Hx Orthopedic Surgery - left knee, Hx Tonsillectomy - Immunizations Immunizations up to date: Yes Hx Diphtheria, Pertussis, Tetanus Vaccination: Yes Physical Exam - Vital signs Vitals: Temp Pulse Resp BP Pulse Ox 98.5 F 120 H 22 H 128/92 H 99 06/05/18 21:41 06/05/18 21:41 06/05/18 21:41 06/05/18 21:41 06/05/18 21:41 Course - Vital Signs Vital signs: Temp Pulse Resp BP Pulse Ox 98.5 F 120 H 22 H 128/92 H 99 06/05/18 21:41 06/05/18 21:41 06/05/18 21:41 06/05/18 21:41 06/05/18 21:41 Doctor's Discharge - Discharge Referrals: VI UNDERWOOD MD [Primary Care Provider] - Follow up as needed
[2018-06-05 23:26] LABS: ABSOLUTE BASOPHILS # (AUTO) 0.1 10^3/uL (0.0-0.2); ABSOLUTE EOSINOPHILS # (AUTO) 0.3 10^3/uL (0.0-0.6); ABSOLUTE LYMPHOCYTES (AUTO) 1.8 10^3/uL (0.5-4.7); ABSOLUTE MONOCYTES (AUTO) 1.2 10^3/uL (0.1-1.4); BASOPHILS % (AUTO) 0.4 % (0-2); EOSINOPHILS % (AUTO) 1.6 % (0-6); HEMATOCRIT 48.9 % (36.0-47.0); HEMOGLOBIN 17.1 g/dL (12.0-15.5); LYMPHOCYTES % (AUTO) 11.9 % (13-45); MEAN CORPUSCULAR VOLUME 83 fl (80-97); MONOCYTES % (AUTO) 7.8 % (3-13); PLATELET COUNT 468 10^3/uL (150-450); RED BLOOD COUNT 5.89 10^6/uL (3.72-5.28); RED CELL DISTRIBUTION WIDTH 13.4 % (11.5-14.0); SEGMENTED NEUTROPHILS % (AUTO) 78.3 % (42-78); TOTAL CELLS COUNTED % (AUTO) 100 %; WHITE BLOOD COUNT 15.4 10^3/uL (4.0-10.5)
[2018-06-05 23:43] LABS: ALANINE AMINOTRANSFERASE 73 U/L (9-52); ALBUMIN 4.7 g/dL (3.5-5.0); ALKALINE PHOSPHATASE 105 U/L (38-126); ANION GAP 15 (5-19); ASPARTATE AMINO TRANSFERASE 38 U/L (14-36); BILIRUBIN,DIRECT 0.2 mg/dL (0.0-0.4); BILIRUBIN,TOTAL 0.5 mg/dL (0.2-1.3); BLOOD UREA NITROGEN 13 mg/dL (7-20); CALCIUM 9.8 mg/dL (8.4-10.2); CARBON DIOXIDE 17 mmol/L (22-30); CHLORIDE 103 mmol/L (98-107); GLUCOSE 217 mg/dL (75-110); LIPASE 72.5 U/L (23-300); POTASSIUM 3.6 mmol/L (3.6-5.0); SODIUM 134.6 mmol/L (137-145); TOTAL PROTEIN 7.9 g/dL (6.3-8.2)
[2018-06-06] MEDS ORDERED: PROMETHAZINE HCL INJ 25 MG/1 ML VIAL IV ONE (01:40)
--- NOTE | 2018-06-06 02:30 | RADIOLOGY REPORT (SQ) ---
EXAM DESCRIPTION: CT ABDOMEN PELVIS WITH IV CONTRAST COMPLETED DATE/TME: 06/06/2018 01:40 CLINICAL HISTORY: 43 years, Female, LLQ pain COMPARISON: None. TECHNIQUE: Axial CT images of the abdomen and pelvis were obtained after the administration of IV contrast. Sagittal and coronal reformats were performed. Images stored on PACS. All CT scanners at this facility use dose modulation, iterative reconstruction, and/or weight based dosing when appropriate to reduce radiation dose to as low as reasonably achievable (ALARA). [facility]: Dose Right [facility]: CareDose [facility]: Dose Right [facility]: Teradose 4D [facility]: [employer], [employer] LIMITATIONS: None. FINDINGS: Lung bases are clear. Fatty liver. Cholecystectomy. The pancreas, spleen, adrenal glands, and kidneys appear normal. There is no hydronephrosis. There is no intraperitoneal free air or fluid. There is no lymphadenopathy. The abdominal aorta is normal in caliber. The stomach is unremarkable. There is mild thickening of the fluid-filled small bowel. The appendix is normal. The colon is mildly distended with fluid. The uterus appears unremarkable. There are no lytic or blastic bone lesions IMPRESSION: Mild thickening of the fluid-filled small bowel with mild distention of the fluid-filled colon. This is likely due to an enterocolitis or diarrhea. Fatty liver. Normal appendix. TECHNICAL DOCUMENTATION: Quality ID # [id number]: Final reports with documentation of one or more dose reduction techniques (e.g., Automated exposure control, adjustment of the mA and/or kV according to patient size, use of iterative reconstruction technique) copyright 2010 [employer]- All Rights Reserved
[2018-06-06] MEDS ORDERED: NORMAL SALINE 1000 ML 1,000 ML IV ONE (03:25)
[2018-06-06 04:26] LABS: APPEARANCE,URINE CLEAR; BILIRUBIN,URINE NEGATIVE (NEGATIVE); COLOR,URINE YELLOW; GLUCOSE, URINE NEGATIVE (NEGATIVE); KETONES,URINE NEGATIVE (NEGATIVE); LEUKOCYTE ESTERASE,URINE NEGATIVE (NEGATIVE); NITRITE,URINE NEGATIVE (NEGATIVE); PROTEIN,URINE NEGATIVE (NEGATIVE); URINE SPECIFIC GRAVITY > 1.060; UROBILINOGEN,URINE NEGATIVE mg/dL (<2.0)
--- NOTE | 2018-06-06 04:44 | ER Document Report ---
ED General - General Chief Complaint: Nausea/Vomiting/Diarrhea Stated Complaint: VOMITING Time Seen by Provider: 06/05/18 22:20 Notes: Patient is a 43-year-old female presents to the emergency department complaining of generalized left lower abdominal pain. Patient states she has vomited over 9 times today and has also had over 15 episodes of diarrhea. Patient denies any blood in either vomit or diarrhea. Patient does admit to a subjective fever. Patient states she has had generalized body aches, nausea, vomiting, diarrhea intermittently for the last 2 weeks. Patient states her last menstrual period was on May 22, 2018 and she is not sexually active. Patient denies any dysuria or vaginal discharge. Patient denies antibiotic use in the last 30 days. Past medical history: None Medications: None Allergies: Penicillin Patient does have a surgical history of a cholecystectomy. TRAVEL OUTSIDE OF THE [place] IN LAST 30 DAYS: No - Related Data Allergies/Adverse Reactions: Penicillins Allergy (Verified 01/18/18 18:42) Sulfa (Sulfonamide Antibiotics) Allergy (Verified 01/18/18 18:42) tramadol [Tramadol] Allergy (Verified 01/18/18 18:42) Past Medical History - General Information source: Patient - Social History Smoking Status: Unknown if Ever Smoked Family History: Arthritis, DM Patient has suicidal ideation: No Patient has homicidal ideation: No - Past Medical History Cardiac Medical History: Reports: Hx Hypercholesterolemia, Hx Hypertension Denies: Hx Coronary Artery Disease, Hx Heart Attack Pulmonary Medical History: Denies: Hx Asthma, Hx Bronchitis, Hx COPD, Hx Pneumonia Neurological Medical History: Reports: Hx Migraine. Denies: Hx Cerebrovascular Accident, Hx Seizures Endocrine Medical History: Reports: Hx Hypothyroidism Renal/ Medical History: Denies: Hx Peritoneal Dialysis Musculoskeletal Medical History: Denies Hx Arthritis, Reports Hx Musculoskeletal Trauma Psychiatric Medical History: Reports: Hx Anxiety - with panic attacks Past Surgical History: Reports: Hx Cholecystectomy, Hx Orthopedic Surgery - left knee, Hx Tonsillectomy - Immunizations Immunizations up to date: Yes Hx Diphtheria, Pertussis, Tetanus Vaccination: Yes Review of Systems - Review of Systems Constitutional: See HPI EENT: No symptoms reported Cardiovascular: No symptoms reported Respiratory: No symptoms reported Gastrointestinal: See HPI Genitourinary: See HPI Female Genitourinary: See HPI Musculoskeletal: No symptoms reported Skin: No symptoms reported Hematologic/Lymphatic: No symptoms reported Neurological/Psychological: No symptoms reported Physical Exam - Vital signs Vitals: Temp Pulse Resp BP Pulse Ox 98.5 F 120 H 22 H 128/92 H 99 06/05/18 21:41 06/05/18 21:41 06/05/18 21:41 06/05/18 21:41 06/05/18 21:41 - Notes Notes: GENERAL: Alert, interacts well. No acute distress. HEAD: Normocephalic, atraumatic. EYES: Pupils equal, round, and reactive to light. Extraocular movements intact. ENT: Oral mucosa moist, tongue midline. NECK: Full range of motion. Supple. Trachea midline. LUNGS: Clear to auscultation bilaterally, no wheezes, rales, or rhonchi. No respiratory distress. HEART: Tachycardic rate and rhythm. No murmur ABDOMEN: Obese, soft, Non-distended. Bowel sounds present in all 4 quadrants. Generalized tenderness left lower quadrant no McBurney's point tenderness, no Mustafa sign noted. EXTREMITIES: Moves all 4 extremities spontaneously. No edema, normal radial and dorsalis pedis pulses bilaterally. No cyanosis. BACK: no cervical, thoracic, lumbar midline tenderness. No saddle anesthesia, normal distal neurovascular exam. No CVA tenderness bilaterally NEUROLOGICAL: Alert and oriented x3. Normal speech. cranial nerves II through XII grossly intact PSYCH: Normal affect, normal mood. SKIN: Warm, dry, normal turgor. No rashes or lesions noted. Course - Re-evaluation Re-evalutation: 06/06/18 04:50 Patient's labs did reveal a leukocytosis of 15.4. At that time a CT was ordered to rule out diverticulitis. Patient's sodium was 134.6, she was given 2 L of normal saline in the emergency department. Patient had no abnormalities to her potassium or chloride. Her urine and blood work did show signs of dehydration, again treated with normal saline solution in the emergency department. Patients CT did show signs of enterocolitis. Will treat with antibiotics. Patient was initially tachycardic upon arrival to the emergency room. States she feels "a lot better." Patient is no longer tachycardic continues to be afebrile has been able to drink fluids after antinausea medication administration. Discussed close follow-up with primary care provider and return precautions. Patient stable for discharge. - Vital Signs Vital signs: Temp Pulse Resp BP Pulse Ox 98.5 F 120 H 24 H 119/75 95 06/05/18 21:41 06/05/18 21:41 06/06/18 03:01 06/06/18 03:01 06/06/18 03:01 - Laboratory Result Diagrams: 06/05/18 23:14 06/05/18 23:14 Laboratory results interpreted by me: 06/05/18 06/05/18 23:14 23:14 WBC 15.4 H RBC 5.89 H Hgb 17.1 H Hct 48.9 H Plt Count 468 H Seg Neutrophils % 78.3 H Lymphocytes % 11.9 L Absolute Neutrophils 12.0 H Sodium 134.6 L Carbon Dioxide 17 L Glucose 217 H AST 38 H ALT 73 H Discharge - Discharge Clinical Impression: Enterocolitis Vomiting Qualifiers: Vomiting type: unspecified Vomiting Intractability: non-intractable Nausea presence: with nausea Qualified Code(s): R11.2 - Nausea with vomiting, unspecified Diarrhea Qualifiers: Diarrhea type: unspecified type Qualified Code(s): R19.7 - Diarrhea, unspecified Condition: Stable Disposition: HOME, SELF-CARE Instructions: Intravenous (IV) Fluids ([facility]), Vomiting ([facility]), Diarrhea, Nonspecific ([facility]) Additional Instructions: As we discussed you have been seen and treated in the emergency department for your vomiting, diarrhea, left lower abdominal pain. Your CT imaging does show inflammation to your colon in your left lower side. Because of this I will treat you with antibiotics. Please take medications as prescribed. Please continue to take antinausea medications as prescribed and continue to stay well- hydrated. Please return to the emergency room for any other concerning symptom s. Please follow-up with your primary care provider in the next 24-48 hours. Prescriptions: Ciprofloxacin HCl [Cipro 500 mg Tablet] 500 mg PO BID #20 tablet Metronidazole [Flagyl 500 mg Tablet] 500 mg PO TID 10 Days tablet Ondansetron [Zofran Odt 4 mg Tablet] 1 - 2 tab PO Q4H PRN #15 tab.rapdis PRN Reason: For Nausea/Vomiting Forms: Return to Work Referrals: VI UNDERWOOD MD [Primary Care Provider] - Follow up as needed
[2018-06-06 05:07] VITALS: BP 127/78
== END 2018-06-06 05:07 | disposition home or self-care (01) ==
LOC: ER 21:26
DX: R10.32 Left lower quadrant pain (principal); R11.2 Nausea with vomiting, unspecified; I10 Essential (primary) hypertension; Z90.49 Acquired absence of other specified parts of digestive tract; K52.9 Noninfective gastroenteritis and colitis, unspecified; R00.0 Tachycardia, unspecified; D72.829 Elevated white blood cell count, unspecified; Z88.0 Allergy status to penicillin; Z88.2 Allergy status to sulfonamides; Z88.5 Allergy status to narcotic agent
CPT/HCPCS: 99284; 96361; 96374; 96375; 36415; 87045; 87205; 87209; 83690; 87177; 85025; 81025; 80053; 81001; 87493; 74177; J2270; J2550; J2405; J7030 ×2

== ENCOUNTER 2018-06-12 22:14 | Emergency (ER) | payer BC ==
[2018-06-13 00:35] LABS: ABSOLUTE EOSINOPHILS # (AUTO) 0.2 10^3/uL (0.0-0.6); ABSOLUTE LYMPHOCYTES (AUTO) 2.2 10^3/uL (0.5-4.7); ABSOLUTE MONOCYTES (AUTO) 0.9 10^3/uL (0.1-1.4); ABSOLUTE NEUT (AUTO) 7.4 10^3/uL (1.7-8.2); BASOPHILS % (AUTO) 0.3 % (0-2); HEMATOCRIT 45.3 % (36.0-47.0); HEMOGLOBIN 16.2 g/dL (12.0-15.5); LYMPHOCYTES % (AUTO) 20.1 % (13-45); MEAN CORPUSCULAR HEMOGLOBIN 29.6 pg (27.0-33.4); MEAN CORPUSCULAR HGB CONC 35.7 g/dL (32.0-36.0); MEAN CORPUSCULAR VOLUME 83 fl (80-97); MONOCYTES % (AUTO) 8.4 % (3-13); PLATELET COUNT 480 10^3/uL (150-450); RED BLOOD COUNT 5.46 10^6/uL (3.72-5.28); RED CELL DISTRIBUTION WIDTH 13.6 % (11.5-14.0); SEGMENTED NEUTROPHILS % (AUTO) 69.2 % (42-78); TOTAL CELLS COUNTED % (AUTO) 100 %; WHITE BLOOD COUNT 10.8 10^3/uL (4.0-10.5)
[2018-06-13 00:41] LABS: APPEARANCE,URINE SLIGHTLY-CLOUDY; BILIRUBIN,URINE SMALL (NEGATIVE); COLOR,URINE AMBER; GLUCOSE, URINE NEGATIVE (NEGATIVE); KETONES,URINE 20 mg/dL (NEGATIVE); LEUKOCYTE ESTERASE,URINE NEGATIVE (NEGATIVE); NITRITE,URINE NEGATIVE (NEGATIVE); PROTEIN,URINE 100 mg/dL (NEGATIVE); URINE SPECIFIC GRAVITY 1.032
[2018-06-13 00:51] LABS: ALANINE AMINOTRANSFERASE 178 U/L (9-52); ALBUMIN 4.5 g/dL (3.5-5.0); ALKALINE PHOSPHATASE 207 U/L (38-126); ANION GAP 11 (5-19); ASPARTATE AMINO TRANSFERASE 170 U/L (14-36); BILIRUBIN,DIRECT 0.4 mg/dL (0.0-0.4); BILIRUBIN,TOTAL 0.9 mg/dL (0.2-1.3); BLOOD UREA NITROGEN 10 mg/dL (7-20); CARBON DIOXIDE 27 mmol/L (22-30); CHLORIDE 99 mmol/L (98-107); GLUCOSE 141 mg/dL (75-110); LIPASE 177.8 U/L (23-300); POTASSIUM 3.6 mmol/L (3.6-5.0); SODIUM 137.1 mmol/L (137-145); TOTAL PROTEIN 7.2 g/dL (6.3-8.2)
[2018-06-13] MEDS ORDERED: ONDANSETRON HCL INJ/PF 4 MG/2 ML SDV IV ONE (02:19)
[2018-06-13] MEDS ORDERED: MORPHINE SULFATE 10 MG/ML INJ IV ONE (02:19)
[2018-06-13] MEDS ORDERED: NORMAL SALINE 1000 ML 1,000 ML IV ONE (02:21)
--- NOTE | 2018-06-13 04:13 | RADIOLOGY REPORT (SQ) ---
EXAM DESCRIPTION: CT ABDOMEN PELVIS WITH IV CONTRAST COMPLETED DATE/TME: 06/13/2018 02:22 CLINICAL HISTORY: 43 years, Female, left lower quad pain, rebound COMPARISON: 06/06/2018 CT TECHNIQUE: 510 Images stored on PACS. All CT scanners at this facility use dose modulation, iterative reconstruction, and/or weight based dosing when appropriate to reduce radiation dose to as low as reasonably achievable (ALARA). [facility]: Dose Right [facility]: CareDose [facility]: Dose Right [facility]: Teradose 4D [facility]: Smart [employer] LIMITATIONS: None. FINDINGS: Limited evaluation of the lung bases is unremarkable. Osseous structures are grossly intact. Diffuse fatty infiltrative change to the liver. Status post cholecystectomy. The spleen, adrenal glands, pancreas, kidneys are unremarkable. Mild biliary ductal dilatation is likely a function of postcholecystectomy state. No gross evidence for bowel obstruction. Normal appendix. A small amount of air in the vaginal cuff. Nondilated fluid-filled loops of large and small bowel. Occasional sigmoid diverticuli. Equivocal/mild wall thickening of the sigmoid colon may reflect minor diverticulitis. There is also some minor surrounding inflammation.. IMPRESSION: Findings suggestive of mild sigmoid diverticulitis. Fatty infiltrative change to the liver. Normal appendix TECHNICAL DOCUMENTATION: Quality ID # [id number]: Final reports with documentation of one or more dose reduction techniques (e.g., Automated exposure control, adjustment of the mA and/or kV according to patient size, use of iterative reconstruction technique) copyright 2010 [employer]- All Rights Reserved
[2018-06-13] MEDS ORDERED: AMOXICILLIN TR/POT CLAVULANATE 500-125 MG TAB PO ONE (06:07)
--- NOTE | 2018-06-13 06:07 | ER Document Report ---
ED General - General Chief Complaint: Nausea/Vomiting/Diarrhea Stated Complaint: ABDOMINAL PAIN/NAUSEA Time Seen by Provider: 06/13/18 01:54 Primary Care Provider: VI UNDERWOOD MD [Primary Care Provider] - Follow up as needed Notes: Patient is a 43-year-old female presents to the emergency department for generalized left lower abdominal pain. Patient states she was seen at this facility last week and diagnosed with enterocolitis. Patient states initially she was feeling better but then on Monday had over 10 episodes of vomiting and the pain in her left lower quadrant has increased. Patient states she has not taking her prescription Flagyl because it makes her throw up. Patient was giving a prescription for Zofran states she has taken all of it and has no more. Past medical history: Diverticulitis Medications: Cipro, Flagyl Allergies: Penicillin, sulfa Surgical history: Cholecystectomy Patient states last menstrual period was May 22 TRAVEL OUTSIDE OF THE [place] IN LAST 30 DAYS: No - Related Data Allergies/Adverse Reactions: Penicillins Allergy (Verified 01/18/18 18:42) Sulfa (Sulfonamide Antibiotics) Allergy (Verified 01/18/18 18:42) tramadol [Tramadol] Allergy (Verified 01/18/18 18:42) Past Medical History - General Information source: Patient - Social History Smoking Status: Never Smoker Chew tobacco use (# tins/day): No Frequency of alcohol use: Occasional Drug Abuse: None Family History: Arthritis, DM Patient has suicidal ideation: No Patient has homicidal ideation: No - Past Medical History Cardiac Medical History: Reports: Hx Hypercholesterolemia, Hx Hypertension Denies: Hx Coronary Artery Disease, Hx Heart Attack Pulmonary Medical History: Denies: Hx Asthma, Hx Bronchitis, Hx COPD, Hx Pneumonia Neurological Medical History: Reports: Hx Migraine. Denies: Hx Cerebrovascular Accident, Hx Seizures Endocrine Medical History: Reports: Hx Hypothyroidism Renal/ Medical History: Denies: Hx Peritoneal Dialysis Musculoskeletal Medical History: Denies Hx Arthritis, Reports Hx Musculoskeletal Trauma Psychiatric Medical History: Reports: Hx Anxiety - with panic attacks Past Surgical History: Reports: Hx Cholecystectomy, Hx Orthopedic Surgery - left knee, Hx Tonsillectomy - Immunizations Immunizations up to date: Yes Hx Diphtheria, Pertussis, Tetanus Vaccination: Yes Review of Systems - Review of Systems Constitutional: No symptoms reported EENT: No symptoms reported Cardiovascular: No symptoms reported Respiratory: No symptoms reported Gastrointestinal: See HPI Genitourinary: No symptoms reported Female Genitourinary: See HPI Musculoskeletal: No symptoms reported Skin: No symptoms reported Hematologic/Lymphatic: No symptoms reported Neurological/Psychological: No symptoms reported Physical Exam - Vital signs Vitals: Temp Pulse Resp BP Pulse Ox 98.6 F 103 H 18 131/81 H 99 06/12/18 22:50 06/12/18 22:50 06/12/18 22:50 06/12/18 22:50 06/12/18 22:50 - Notes Notes: GENERAL: Alert, interacts well. Pallor HEAD: Normocephalic, atraumatic. EYES: Pupils equal, round, and reactive to light. Extraocular movements intact. ENT: Oral mucosa moist, tongue midline. NECK: Full range of motion. Supple. Trachea midline. LUNGS: Clear to auscultation bilaterally, no wheezes, rales, or rhonchi. No respiratory distress. HEART: Regular rate and rhythm. No murmur ABDOMEN: Obese soft, generalized left lower quadrant pain. Non-distended. Bowel sounds present in all 4 quadrants. No McBurney's point tenderness noted. EXTREMITIES: Moves all 4 extremities spontaneously. No edema, normal radial and dorsalis pedis pulses bilaterally. No cyanosis. BACK: no cervical, thoracic, lumbar midline tenderness. No saddle anesthesia, normal distal neurovascular exam. NEUROLOGICAL: Alert and oriented x3. Normal speech. cranial nerves II through XII grossly intact PSYCH: Normal affect, normal mood. SKIN: Warm, dry, normal turgor. No rashes or lesions noted. Course - Re-evaluation Re-evalutation: 06/13/18 06:02 Patient's labs do show leukocytosis of 10.8, no electrolyte abnormalities. Patient does show dehydration on her urine with a specific gravity of 1.032. Patient's LFTs do appear to be elevated but her CT also shows signs of a fatty liver. Patient CT shows diverticulitis at this time, no signs of abscesses or perforation. Discussed switching the patient's antibiotic to Augmentin. Patient is agreeable with this discharge plan. Patient states she overall feels a lot better at this time with treatment modalities in the emergency room. Patient is no longer tachycardic. Patient is stable for discharge. - Vital Signs Vital signs: Temp Pulse Resp BP Pulse Ox 98.6 F 103 H 18 131/81 H 99 06/12/18 22:50 06/12/18 22:50 06/12/18 22:50 06/12/18 22:50 06/12/18 22:50 - Laboratory Result Diagrams: 06/12/18 23:59 06/12/18 23:59 Laboratory results interpreted by me: 06/12/18 06/12/18 06/13/18 23:59 23:59 00:00 WBC 10.8 H RBC 5.46 H Hgb 16.2 H Plt Count 480 H Glucose 141 H AST 170 H ALT 178 H Alkaline Phosphatase 207 H Urine Protein 100 H Urine Ketones 20 H Urine Bilirubin SMALL H Urine Urobilinogen 4.0 H Urine Ascorbic Acid 40 H Discharge - Discharge Clinical Impression: Diverticulitis Vomiting Qualifiers: Vomiting type: unspecified Vomiting Intractability: non-intractable Nausea presence: with nausea Qualified Code(s): R11.2 - Nausea with vomiting, unspecified Diarrhea Qualifiers: Diarrhea type: unspecified type Qualified Code(s): R19.7 - Diarrhea, unspecified Condition: Stable Disposition: HOME, SELF-CARE Instructions: Diarrhea, Nonspecific ([facility]), Intravenous (IV) Fluids ([facility]), Vomiting ([facility]), Prescribed Antidiarrhea Medications ([facility]), Diverticulitis ([facility]) Additional Instructions: As we discussed you have been seen and treated in the emergency department for diverticulitis. Please make sure you take antibiotics as prescribed. Please also take antinausea medications as needed. Please try to stay well-hydrated and follow-up with your primary care provider. I have provided phone numbers for gastroenterology. Please follow-up with them. Please return to the emergency room for any other concerning symptoms. Prescriptions: Amox Tr/Potassium Clavulanate [Augmentin 875-125 Tablet] 1 tab PO BID 10 Days tablet Ondansetron [Zofran Odt 4 mg Tablet] 1 - 2 tab PO Q4H PRN #15 tab.rapdis PRN Reason: For Nausea/Vomiting Referrals: VI UNDERWOOD MD [Primary Care Provider] - Follow up as needed
[2018-06-13] MEDS ORDERED: ONDANSETRON ODT 4 MG TAB (6 TAB/ER DISP) PO PRN (06:08)
[2018-06-13 06:56] VITALS: BP 123/72
== END 2018-06-13 06:17 | disposition home or self-care (01) ==
LOC: ER 22:14
DX: K57.92 Diverticulitis of intestine, part unspecified, without perforation or abscess without bleeding (principal); R11.2 Nausea with vomiting, unspecified; R19.7 Diarrhea, unspecified; R10.9 Unspecified abdominal pain; R10.32 Left lower quadrant pain; I10 Essential (primary) hypertension
CPT/HCPCS: 99284; 96361; 96374; 96375; 36415; 83690; 85025; 81025; 80053; 81001; 74177; J2270; J2405; J7030

== ENCOUNTER 2018-06-30 16:11 | Emergency (ER) | payer BC ==
[2018-06-30] MEDS ORDERED: ASPIRIN 81 MG TABLET, CHEWABLE PO ONE (16:40)
[2018-06-30 16:46] LABS: ABSOLUTE BASOPHILS # (AUTO) 0.1 10^3/uL (0.0-0.2); ABSOLUTE EOSINOPHILS # (AUTO) 0.1 10^3/uL (0.0-0.6); ABSOLUTE LYMPHOCYTES (AUTO) 0.8 10^3/uL (0.5-4.7); ABSOLUTE MONOCYTES (AUTO) 0.1 10^3/uL (0.1-1.4); ABSOLUTE NEUT (AUTO) 13.6 10^3/uL (1.7-8.2); BASOPHILS % (AUTO) 0.5 % (0-2); EOSINOPHILS % (AUTO) 0.6 % (0-6); HEMATOCRIT 45.5 % (36.0-47.0); HEMOGLOBIN 15.4 g/dL (12.0-15.5); LYMPHOCYTES % (AUTO) 5.2 % (13-45); MEAN CORPUSCULAR HGB CONC 33.9 g/dL (32.0-36.0); MEAN CORPUSCULAR VOLUME 86 fl (80-97); MONOCYTES % (AUTO) 0.6 % (3-13); PLATELET COUNT 424 10^3/uL (150-450); RED BLOOD COUNT 5.32 10^6/uL (3.72-5.28); RED CELL DISTRIBUTION WIDTH 14.3 % (11.5-14.0); SEGMENTED NEUTROPHILS % (AUTO) 93.1 % (42-78); TOTAL CELLS COUNTED % (AUTO) 100 %; WHITE BLOOD COUNT 14.6 10^3/uL (4.0-10.5)
[2018-06-30] MEDS ORDERED: NITROGLYCERIN 0.4 MG/TAB 25 TAB/BOTTLE ONE (16:50)
[2018-06-30] MEDS: NITROGLYCERIN 0.4 MG/TAB 25 TAB/BOTTLE SL PRN ×3 (16:51→17:04)
[2018-06-30] MEDS ORDERED: NORMAL SALINE 1000 ML 1,000 ML IV ONE (16:59)
[2018-06-30] MEDS ORDERED: ACETAMINOPHEN 325 MG TABLET PO ONE (17:05)
[2018-06-30 17:08] LABS: ALANINE AMINOTRANSFERASE 56 U/L (9-52); ALBUMIN 4.7 g/dL (3.5-5.0); ALKALINE PHOSPHATASE 97 U/L (38-126); ANION GAP 13 (5-19); ASPARTATE AMINO TRANSFERASE 36 U/L (14-36); BILIRUBIN,DIRECT 0.4 mg/dL (0.0-0.4); BILIRUBIN,TOTAL 0.5 mg/dL (0.2-1.3); BLOOD UREA NITROGEN 12 mg/dL (7-20); CARBON DIOXIDE 23 mmol/L (22-30); CHLORIDE 102 mmol/L (98-107); CREATINE KINASE 36 U/L (30-135); GLUCOSE 286 mg/dL (75-110); SODIUM 137.6 mmol/L (137-145); TOTAL PROTEIN 7.7 g/dL (6.3-8.2)
[2018-06-30 17:22] LABS: CREATINE KINASE MB < 0.22 ng/mL (<4.55); TROPONIN I < 0.012 ng/mL
--- NOTE | 2018-06-30 18:02 | RADIOLOGY REPORT (SQ) ---
EXAM DESCRIPTION: CHEST SINGLE VIEW COMPLETED DATE/TIME: 06/30/2018 5:50 pm REASON FOR STUDY: cp COMPARISON: 11/06/2016 TECHNIQUE: Single frontal radiographic view of the chest acquired. NUMBER OF VIEWS: One view. LIMITATIONS: None. FINDINGS: LUNGS AND PLEURA: No pneumothorax. No consolidation or pleural effusion. MEDIASTINUM AND HILAR STRUCTURES: Stable. HEART AND VASCULAR STRUCTURES: Stable. BONES: No acute findings. HARDWARE: None in the chest. OTHER: No other significant finding. IMPRESSION: NO ACUTE FINDINGS. TECHNICAL DOCUMENTATION: JOB ID: [id number] [place]-72 2010 [employer]- All Rights Reserved Reading location - IP/workstation name: [email or web address]
[2018-06-30] MEDS ORDERED: METOCLOPRAMIDE HCL ORAL SOLN 10 MG/10 ML UDCUP PO ONE (18:42)
[2018-06-30] MEDS ORDERED: LIDOCAINE 2% VISCOUS SOLN 20 ML UDCUP PO ONE (18:42)
[2018-06-30] MEDS ORDERED: MAG HYDROX/AL HYDROX/SIMETH SUSP 30 ML UDCUP PO ONE (18:42)
--- NOTE | 2018-06-30 20:14 | EKG REPORT ---
SEVERITY:- ABNORMAL ECG - SINUS RHYTHM ABNRM R PROG, CONSIDER ASMI OR LEAD PLACEMENT : Confirmed by: Gretchen Benitez 30-Jun-2018 20:13:59
--- NOTE | 2018-06-30 20:14 | EKG REPORT ---
SEVERITY:- NORMAL ECG - SINUS RHYTHM : Confirmed by: Gretchen Benitez 30-Jun-2018 20:13:37
[2018-06-30] MEDS ORDERED: SUCRALFATE SUSP 1 GM/10 ML UDCUP PO ONE (21:59)
[2018-06-30 22:20] VITALS: BP 125/79
--- NOTE | 2018-09-05 15:20 | ER Document Report ---
Entered by KENDAL ANG SCRIBE 06/30/18 1719 Acting as scribe for:MIN BUENO DO ED General - General Chief Complaint: Chest Pain Stated Complaint: CHEST PAIN Time Seen by Provider: 06/30/18 16:41 Primary Care Provider: VI UNDERWOOD MD [Primary Care Provider] - Follow up as needed Mode of Arrival: Ambulatory Information source: Patient Notes: Patient is a 43-year-old female with a reported history of diverticulitis, enterocolitis presents to the emergency department complaining of chest pain onset this morning. Patient states she had a sudden onset of sharp and stabbing chest pain that lasted approximately 10 seconds. She states the pain went away for approximately 45 seconds and then returned. She states the pain has been presenting in the same fashion for most of today further stating when the pain appears it takes her breath away. She denies any exacerbating or relieving factors or any pain with deep breathing. TRAVEL OUTSIDE OF THE [place] IN LAST 30 DAYS: Yes - Related Data Allergies/Adverse Reactions: Penicillins Allergy (Verified 01/18/18 18:42) Sulfa (Sulfonamide Antibiotics) Allergy (Verified 01/18/18 18:42) tramadol [Tramadol] Allergy (Verified 01/18/18 18:42) Past Medical History - General Information source: Patient - Social History Smoking Status: Never Smoker Chew tobacco use (# tins/day): No Frequency of alcohol use: None Drug Abuse: None Family History: Arthritis, CAD - Mother had first heart attack at age 36 and proceeded to have 3, father has had 4 heart attacks., DM Patient has suicidal ideation: No Patient has homicidal ideation: No - Past Medical History Cardiac Medical History: Reports: Hx Hypercholesterolemia, Hx Hypertension Neurological Medical History: Reports: Hx Migraine Endocrine Medical History: Reports: Hx Hypothyroidism Musculoskeletal Medical History: Reports Hx Musculoskeletal Trauma Psychiatric Medical History: Reports: Hx Anxiety - with panic attacks Past Surgical History: Reports: Hx Cholecystectomy, Hx Orthopedic Surgery - left knee, Hx Tonsillectomy - Immunizations Immunizations up to date: Yes Hx Diphtheria, Pertussis, Tetanus Vaccination: Yes Review of Systems - Review of Systems Constitutional: No symptoms reported EENT: No symptoms reported Cardiovascular: See HPI, Chest pain Respiratory: No symptoms reported Gastrointestinal: No symptoms reported Genitourinary: No symptoms reported Female Genitourinary: No symptoms reported Musculoskeletal: No symptoms reported Skin: No symptoms reported Hematologic/Lymphatic: No symptoms reported Neurological/Psychological: No symptoms reported -: Yes All other systems reviewed and negative Physical Exam - Vital signs Vitals: Resp Pulse Ox 18 99 06/30/18 16:39 06/30/18 16:39 - Notes Notes: GENERAL: Alert, interacts well. No acute distress. HEAD: Normocephalic, atraumatic. EYES: Pupils equal, round, and reactive to light. Extraocular movements intact. ENT: Oral mucosa moist, tongue midline. NECK: Full range of motion. Supple. Trachea midline. LUNGS: Clear to auscultation bilaterally, no wheezes, rales, or rhonchi. No respiratory distress. HEART: Mild tachycardia. No murmurs, gallops, or rubs. ABDOMEN: Soft, non-tender. Non-distended. Bowel sounds present in all 4 quadrants. EXTREMITIES: Moves all 4 extremities spontaneously. NEUROLOGICAL: Alert and oriented x3. Normal speech. PSYCH: Normal affect, normal mood. SKIN: Warm, dry, normal turgor. No rashes or lesions noted. Course - Re-evaluation Re-evalutation: 06/30/18 22:10 CBC shows mild leukocytosis of 14.6, CMP shows hyperglycemia with a glucose of 286, troponin negative x2, chest x-ray shows no acute process. Initial EKG difficult to interpret due to baseline artifact, repeat EKG is nonischemic. Patient's pain was unchanged with nitroglycerin, patient's pain improved with GI cocktail. 1-2 hours after the cocktail her pain worsened again. Patient does have a history of GERD. Patient takes Nexium only as needed, advised patient to start taking Nexium every day for the next 2 weeks, prescribed Carafate. Currently after negative workup do not suspect this is cardiac. Patient was discharged home. - Vital Signs Vital signs: Temp Pulse Resp BP Pulse Ox 18 136/78 H 98 06/30/18 21:01 06/30/18 21:01 06/30/18 21:01 - Laboratory Result Diagrams: 06/30/18 16:36 06/30/18 16:36 Laboratory results interpreted by me: 06/30/18 06/30/18 16:36 16:36 WBC 14.6 H RBC 5.32 H RDW 14.3 H Seg Neutrophils % 93.1 H Lymphocytes % 5.2 L Monocytes % 0.6 L Absolute Neutrophils 13.6 H Glucose 286 H ALT 56 H - EKG Interpretation by Me Additional EKG results interpreted by me: 06/30/18 22:11 EKG shows sinus rhythm at a rate of 91, rapid R wave progression, normal axis, normal intervals, machine interprets ST segment elevations in the inferior leads but I do not see this I think it is baseline artifact, there is no ST segment depression, no T wave inversions per my interpretation. Repeat EKG at 1728 shows sinus rhythm at a rate of 85, there is minimal baseline artifact, normal axis, normal intervals, rapid R wave progression, no ST segment elevations or depressions, isolated T wave inversions in lead III per my interpretation. Discharge - Discharge Clinical Impression: Chest pain Qualifiers: Chest pain type: unspecified Qualified Code(s): R07.9 - Chest pain, unspecified GERD (gastroesophageal reflux disease) Qualifiers: Esophagitis presence: esophagitis presence not specified Qualified Code(s): K21.9 - Gastro-esophageal reflux disease without esophagitis Condition: Stable Disposition: HOME, SELF-CARE Additional Instructions: Chest Pain of Unclear Cause The exact cause of your chest pain isn't clear. Fortunately, there is no ev idence of a dangerous medical condition. Further testing may be required to find the source of the pain. Most often, we find that this pain is coming from the chest wall -- the muscles or rib joints in the chest. But chest pain can come from the lung and lung lining, the esophagus, the heart valves or heart lining, and even the stomach or gallbladder. Rest. Eat lightly until the pain is gone. We may prescribe medicine for pain and inflammation. You should call the physician immediately if the pain radiates to the shoulder, jaw or arms; if you start to run a fever or develop a cough; or if you develop shortness of breath, or other new or alarming symptoms. You do have a known history of reflux/GERD. Please take your Nexium every day instead of just as needed for the next 2 weeks. Please also take the Carafate 1 dose cup before eating and before bed. Please take it at least an hour after taking your other medications. Prescriptions: Sucralfate [Carafate Susp 1 Gm/10 Ml Udcup] 1 gm PO ACHS #30 [facility] [place]errals: VI UNDERWOOD MD [Primary Care Provider] - Follow up as needed I personally performed the services described in the documentation, reviewed and edited the documentation which was dictated to the scribe in my presence, and it accurately records my words and actions.
== END 2018-06-30 22:28 | disposition home or self-care (01) ==
LOC: ER 16:11
DX: R07.9 Chest pain, unspecified (principal); K21.9 Gastro-esophageal reflux disease without esophagitis; I10 Essential (primary) hypertension
CPT/HCPCS: 93005; 99283; 96360; 36415; 82553; 82550; 85025; 80053; 84484; 71045; 93010; J3490; J7030

== ENCOUNTER 2018-12-04 22:41 | Emergency (ER) | payer BC ==
--- NOTE | 2018-12-04 23:23 | RADIOLOGY REPORT (SQ) ---
EXAM DESCRIPTION: XR SHOULDER 2 OR MORE VIEWS COMPLETED DATE/TME: 12/04/2018 22:48 CLINICAL HISTORY: 43 years, Female, bone tenderness COMPARISON: None. NUMBER OF VIEWS: 3 TECHNIQUE: 3 view left shoulder LIMITATIONS: None. FINDINGS: Negative for fracture or dislocation. Soft tissues are unremarkable. Joint spaces are preserved IMPRESSION: No acute osseous abnormality copyright 2010 [employer]- All Rights Reserved
[2018-12-05] MEDS ORDERED: HYDROCODONE/ACETAMINOPHEN 5-325 MG (6 TAB/ER DISP) PO PRN (01:27)
--- NOTE | 2018-12-05 01:28 | ER Document Report ---
HPI - HPI Time Seen by Provider: 12/05/18 01:14 Pain Level: 2 Context: Patient is a 43-year-old female presents to the emergency department with a chief complaint of left shoulder pain. Patient states that on Monday she was lifting a 50 pound bag when she felt a pop to the left shoulder. Patient states that since then she has felt popping with certain motions. Patient states she was concerned that her shoulder become dislocated or there was a fracture. Patient states that she does not have any numbness or tingling but with doing certain motions or heavy lifting she does feel any numbness to her fingertips. Patient states that this does resolve with rest. Patient states she has taken Tylenol for her discomfort. 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 - REPRODUCTIVE Reproductive: DENIES: : - MUSCULOSKELETAL Musculoskeletal: REPORTS: Extremity pain Past Medical History - General Information source: Patient - Social History Smoking Status: Never Smoker Cigarette use (# per day): No Chew tobacco use (# tins/day): No Frequency of alcohol use: None Drug Abuse: None Family History: Arthritis, CAD - Mother had first heart attack at age 36 and proceeded to have 3, father has had 4 heart attacks., DM Patient has suicidal ideation: No Patient has homicidal ideation: No - Past Medical History Cardiac Medical History: Reports: Hx Hypercholesterolemia, Hx Hypertension Denies: Hx Coronary Artery Disease, Hx Heart Attack Pulmonary Medical History: Denies: Hx Asthma, Hx Bronchitis, Hx COPD, Hx Pneumonia EENT Medical History: Reports: None Neurological Medical History: Reports: Hx Migraine. Denies: Hx Cerebrovascular Accident, Hx Seizures Endocrine Medical History: Reports: Hx Hypothyroidism Renal/ Medical History: Reports: None. Denies: Hx Peritoneal Dialysis Malignancy Medical History: Reports: None GI Medical History: Reports: None Musculoskeletal Medical History: Denies Hx Arthritis, Reports Hx Musculoskeletal Trauma Skin Medical History: Reports None Psychiatric Medical History: Reports: Hx Anxiety - with panic attacks Traumatic Medical History: Reports: None Infectious Medical History: Reports: None Past Surgical History: Reports: Hx Cholecystectomy, Hx Orthopedic Surgery - left knee, Hx Tonsillectomy - Immunizations Immunizations up to date: Yes Hx Diphtheria, Pertussis, Tetanus Vaccination: Yes Vertical Provider Document - CONSTITUTIONAL Agree With Documented VS: Yes Exam Limitations: No Limitations General Appearance: No Apparent Distress - INFECTION CONTROL TRAVEL OUTSIDE OF THE [place] IN LAST 30 DAYS: No - HEENT HEENT: Atraumatic, Normocephalic, PERRLA - NECK Neck: Normal Inspection - RESPIRATORY Respiratory: Breath Sounds Normal, No Respiratory Distress - CARDIOVASCULAR Cardiovascular: Regular Rate, Regular Rhythm - GI/ABDOMEN Gastrointestinal: Abdomen Soft, Abdomen Non-Tender - BACK Back: Normal Inspection - MUSCULOSKELETAL/EXTREMETIES Notes: Patient has tenderness over the supraspinatus and infraspinatus muscle with palpation, patient has limited Abduction of the left shoulder as she can only raise the left arm to the level of the shoulder. There is no obvious deformity, ecchymosis, erythema or edema to the left shoulder. Patient is able to adduct without difficulty. Pain with active and passive range of motion when attempting to internally and externally rotate to the left shoulder. Patient has a strong neon glass bender to the left hand and strong palpable radial and brachial pulses. Patient has a brisk cap refill less than 2 seconds to the fingers of the left hand. Course - Re-evaluation Re-evalutation: 12/05/18 01:26 Patient's x-ray was negative for acute dislocation or fracture. I did discuss results with the patient. I will place the patient in a sling and have educated the patient to use Tylenol and ibuprofen as needed for pain. I will give the patient a to go pack of [place] as she states the pain is more severe at night. I informed the patient do not drive or operate heavy machinery while on this medication as it can make her drowsy and is a narcotic. Patient verbalized understanding. Patient states she is not needing work note. - Vital Signs Vital signs: Temp Pulse Resp BP Pulse Ox 98.0 F 107 H 20 148/92 H 98 12/04/18 23:16 12/04/18 23:16 12/04/18 23:16 12/04/18 23:16 12/04/18 23:16 Discharge - Discharge Clinical Impression: Shoulder pain, left Qualifiers: Chronicity: acute Qualified Code(s): M25.512 - Pain in left shoulder Condition: Stable Disposition: HOME, SELF-CARE Instructions: Oral Narcotic Medication ([facility]), Sling as Treatment ([facility]) Additional Instructions: You are seen in the emergency department for left shoulder pain after lifting a heavy object on Monday. Your x-ray was negative for any acute fracture or dislocation. Please use the sling for comfort and immobilization. If you are not feeling better within the next few days please follow-up with orthopedic as he may require additional radiology testing such as an MRI to rule out possible rotator cuff or other injury. Please use ice over the area. Please return to emergency department if you develop a continuous numbness or tingling to the left fingers or if you have any other concerning signs or symptoms. Sling as Treatment A sling has been applied to protect the injury. This is adequate immobilization for this type of injury -- no cast or brace is required. Keep the sling on at all times until instructed to remove it by the doctor. Even though no cast or splint is needed, you must use the sling. If you use the arm too soon, it may not heal properly! If necessary, the sling can be adjusted for comfort. Return if you are encountering problems with the sling. Sling to be Used You are to use a sling. This is to rest the area, and to prevent it from hanging downward. Use this sling for at least 48 hours (or longer if so instructed by the doctor). Some types of splints will break if not supported by the sling, so the sling must be used as long as the splint. Ice can be placed inside the sling over the injured area. Once you remove the sling, you should not encounter pain when you use the arm and hand. If you do feel pain beneath the cast or splint, you must continue use of the sling. Referrals: VI UNDERWOOD MD [COMMUNITY BASED STAFF] - Follow up as needed ALISON HOWARD DO [ACTIVE STAFF] - Follow up as needed MACO VILLEGAS MD [ACTIVE STAFF] - Follow up as needed
[2018-12-05 01:53] VITALS: BP 140/88
== END 2018-12-05 01:52 | disposition home or self-care (01) ==
LOC: ER 22:41
DX: M25.512 Pain in left shoulder (principal); X50.0XXA Overexertion from strenuous movement or load, initial encounter; R20.0 Anesthesia of skin; I10 Essential (primary) hypertension
CPT/HCPCS: 99283

== ENCOUNTER 2019-05-30 10:11 | Day surgery (SDC) | payer BC, OTHER ==
[2019-05-28 10:36] LABS: HEMATOCRIT 42.5 % (36.0-47.0); HEMOGLOBIN 14.6 g/dL (12.0-15.5); MEAN CORPUSCULAR HEMOGLOBIN 29.8 pg (27.0-33.4); MEAN CORPUSCULAR HGB CONC 34.3 g/dL (32.0-36.0); MEAN CORPUSCULAR VOLUME 87 fl (80-97); PLATELET COUNT 368 10^3/uL (150-450); RED BLOOD COUNT 4.88 10^6/uL (3.72-5.28); RED CELL DISTRIBUTION WIDTH 13.6 % (11.5-14.0); WHITE BLOOD COUNT 10.5 10^3/uL (4.0-10.5)
[2019-05-28 10:52] LABS: APPEARANCE,URINE SLIGHTLY-CLOUDY; BILIRUBIN,URINE NEGATIVE (NEGATIVE); COLOR,URINE YELLOW; GLUCOSE, URINE NEGATIVE (NEGATIVE); KETONES,URINE NEGATIVE (NEGATIVE); LEUKOCYTE ESTERASE,URINE NEGATIVE (NEGATIVE); NITRITE,URINE NEGATIVE (NEGATIVE); PROTEIN,URINE NEGATIVE (NEGATIVE); URINE SPECIFIC GRAVITY 1.021; UROBILINOGEN,URINE NEGATIVE mg/dL (<2.0)
[~2019-05-30 10:11] MED LIST: LACTATED RINGERS 1000 ML IV PRN; LIDOCAINE 0.5% INJ-PF (5 MG/ML) 50 ML SDV SUBCUT PRN
[2019-05-30] MEDS ORDERED: SCOPOLAMINE HYDROBROMIDE 1.5 MG PATCH.TD72 ONE (11:09)
[2019-05-30] MEDS ORDERED: FAMOTIDINE INJ/PF 20 MG/2 ML SDV IV ONE (11:11)
[2019-05-30] MEDS ORDERED: FENTANYL CITRATE INJ/PF 100 MCG/2 ML AMPUL ONE (11:21)
[2019-05-30] MEDS ORDERED: PROPOFOL INJ 200 MG/20 ML VIAL IV ONE ×2 (11:22→12:05)
[2019-05-30] MEDS ORDERED: MIDAZOLAM 2 MG/2 ML INJ ONE (11:22)
[2019-05-30] MEDS ORDERED: LIDOCAINE 1%/EPINEPHRINE INJ 20 ML VIAL INJ ONE (11:50)
[2019-05-30] MEDS ORDERED: MORPHINE SULFATE 10 MG/ML INJ IV PRN (12:22)
[2019-05-30] MEDS ORDERED: PROMETHAZINE HCL INJ 25 MG/1 ML VIAL IV PRN ×2 (12:22)
[2019-05-30] MEDS ORDERED: DIPHENHYDRAMINE HCL 50 MG/ML VIAL IV PRN (12:22)
[2019-05-30] MEDS ORDERED: FENTANYL CITRATE INJ/PF 100 MCG/2 ML AMPUL IV PRN ×3 (12:22)
[2019-05-30] MEDS ORDERED: MEPERIDINE HCL/PF INJ 25 MG/1 ML DISP.SYRIN IV PRN (12:22)
[2019-05-30] MEDS ORDERED: ACETAMINOPHEN 1,000 MG/100 ML RTUPB IV ONE (12:27)
[2019-05-30] MEDS ORDERED: KETOROLAC TROMETHAMINE INJ/PF 30 MG/1 ML SDV ONE (12:27)
[2019-05-30] MEDS ORDERED: LIDOCAINE 1%/EPINEPHRINE INJ 20 ML VIAL ONE (12:38)
[2019-05-30] MEDS ORDERED: MORPHINE SULFATE 10 MG/ML INJ IM PRN (12:40)
[2019-05-30] MEDS ORDERED: OXYCODONE-ACETAMINOPHEN 5-325 MG TABLET PO PRN ×2 (12:41→12:42)
[2019-05-30] MEDS ORDERED: IBUPROFEN 800 MG TABLET PO PRN ×2 (12:41→19:00)
[2019-05-30] MEDS ORDERED: ONDANSETRON HCL 8 MG TABLET ONE (13:18)
--- NOTE | 2019-05-30 13:54 | Operative Report ---
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 An in and out cath of approximately 10 cc of clear urine performed. Speculum was placed into the vagina cervix was located. The cervix was then grasped with a single-tooth tenaculum and injected circumferentially with 10 cc of lidocaine with epi. The cervix was then dilated common a a 5 mm hysteroscope scope was inserted and the above findings were noted. Evidence of a possible uterine septum with a thick band of tissue in the midline of the uterus. The 2 sides had proliferative endometrium noted no evidence of malignancy. Lupien tube ostia was noted at the left septum. The right fallopian tube ostia was not noted during observation. The hysteroscope was removed and a sharp curettage was performed carefully. The curettings were removed and passed off the field for pathology. Point the case was concluded. All instruments were removed. Lap and needle counts were correct x2. Was taken to recovery in stable condition.
[2019-05-30 14:00] VITALS: BP 141/70
== END 2019-05-30 13:52 | disposition home or self-care (01) ==
LOC: OROUT 10:11
PROVIDERS: ATTEND Obstetrics & Gynecology
DX: N93.9 Abnormal uterine and vaginal bleeding, unspecified (principal); N85.00 Endometrial hyperplasia, unspecified; R10.2 Pelvic and perineal pain; Z79.899 Other long term (current) drug therapy; Z88.2 Allergy status to sulfonamides; Z88.5 Allergy status to narcotic agent; E66.9 Obesity, unspecified; Z68.39 Body mass index [BMI] 39.0-39.9, adult
CPT/HCPCS: 36415; 85027; 81025; 81001; 88305 ×2; 00952; 58558; J2250; J3010; J3490; J1885; S0119; J2704; S0028; J0131; 952

== ENCOUNTER 2019-06-27 05:30 | Day surgery (SDC) | payer OTHER, BC ==
[2019-06-19 10:29] LABS: HEMATOCRIT 42.5 % (36.0-47.0); HEMOGLOBIN 14.5 g/dL (12.0-15.5); MEAN CORPUSCULAR HEMOGLOBIN 29.7 pg (27.0-33.4); MEAN CORPUSCULAR HGB CONC 34.1 g/dL (32.0-36.0); MEAN CORPUSCULAR VOLUME 87 fl (80-97); PLATELET COUNT 370 10^3/uL (150-450); RED BLOOD COUNT 4.88 10^6/uL (3.72-5.28); RED CELL DISTRIBUTION WIDTH 13.4 % (11.5-14.0); WHITE BLOOD COUNT 7.8 10^3/uL (4.0-10.5)
[2019-06-19 10:33] LABS: APPEARANCE,URINE SLIGHTLY-CLOUDY; BILIRUBIN,URINE NEGATIVE (NEGATIVE); COLOR,URINE YELLOW; GLUCOSE, URINE NEGATIVE (NEGATIVE); KETONES,URINE NEGATIVE (NEGATIVE); LEUKOCYTE ESTERASE,URINE NEGATIVE (NEGATIVE); NITRITE,URINE NEGATIVE (NEGATIVE); PROTEIN,URINE NEGATIVE (NEGATIVE); URINE SPECIFIC GRAVITY 1.028; UROBILINOGEN,URINE NEGATIVE mg/dL (<2.0)
[2019-06-19 10:49] LABS: ALBUMIN 4.2 g/dL (3.5-5.0); ALKALINE PHOSPHATASE 77 U/L (38-126); ANION GAP 10 (5-19); ASPARTATE AMINO TRANSFERASE 17 U/L (14-36); BILIRUBIN,TOTAL 0.5 mg/dL (0.2-1.3); BLOOD UREA NITROGEN 15 mg/dL (7-20); CALCIUM 9.7 mg/dL (8.4-10.2); CARBON DIOXIDE 27 mmol/L (22-30); CHLORIDE 101 mmol/L (98-107); GLUCOSE 152 mg/dL (75-110); POTASSIUM 4.7 mmol/L (3.6-5.0); TOTAL PROTEIN 7.3 g/dL (6.3-8.2)
[~2019-06-27 05:30] MED LIST changes: +CLINDAMYCIN 900 MG/D5W RTU 900 MG/50 ML RTUPB IV PRN; +GENTAMICIN SULFATE 120 MG in DEXTROSE 5%-WATER 100 ML IV PRN; +MAGNESIUM CITRATE 296 ML BOTTLE PO PRN
[2019-06-27] MEDS ORDERED: CLINDAMYCIN 600 MG/D5W RTU 600 MG/50 ML RTUPB IV ONE (06:35)
[2019-06-27] MEDS ORDERED: MIDAZOLAM 2 MG/2 ML INJ ONE (07:11)
[2019-06-27] MEDS ORDERED: HYDROMORPHONE HCL INJ/PF 2 MG/ML AMPULE ONE (07:11)
[2019-06-27] MEDS ORDERED: PROPOFOL INJ 200 MG/20 ML VIAL IV ONE (07:12)
[2019-06-27] MEDS ORDERED: SUGAMMADEX SODIUM 200 MG/2 ML SDV IV ONE (07:13)
[2019-06-27] MEDS ORDERED: MORPHINE SULFATE 10 MG/ML INJ IV PRN ×2 (08:43→13:17)
[2019-06-27] MEDS ORDERED: DIPHENHYDRAMINE HCL 50 MG/ML VIAL IV PRN (08:43)
[2019-06-27] MEDS ORDERED: MEPERIDINE HCL/PF INJ 25 MG/1 ML DISP.SYRIN IV PRN (08:43)
[2019-06-27] MEDS ORDERED: PROMETHAZINE HCL INJ 25 MG/1 ML VIAL IV PRN ×2 (08:43)
[2019-06-27] MEDS ORDERED: FENTANYL CITRATE INJ/PF 100 MCG/2 ML AMPUL IV PRN ×2 (08:43)
[2019-06-27] MEDS ORDERED: FENTANYL CITRATE INJ/PF 100 MCG/2 ML AMPUL ONE (09:44)
[2019-06-27] MEDS: FENTANYL CITRATE INJ/PF 100 MCG/2 ML AMPUL IV PRN ×2 (09:50→10:04)
[2019-06-27] MEDS ORDERED: PROMETHAZINE HCL INJ 25 MG/1 ML VIAL ONE (10:07)
[2019-06-27] MEDS ORDERED: LIDOCAINE 2% INJ-PF (20 MG/ML) 2 ML AMPUL ONE (10:38)
[2019-06-27] MEDS ORDERED: ROCURONIUM BROMIDE INJ 50 MG/5 ML VIAL IV ONE (10:38)
[2019-06-27] MEDS ORDERED: KETOROLAC TROMETHAMINE 60 MG/2 ML SDV ONE (10:38)
[2019-06-27] MEDS ORDERED: ONDANSETRON HCL INJ/PF 4 MG/2 ML SDV ONE (10:38)
--- NOTE | 2019-06-27 10:54 | Operative Report ---
Operative Report DATE OF SURGERY: 06/27/19 PREOPERATIVE DIAGNOSIS: abnormal uterine bleeding, pelvic pain, pelvic adhesion s, cervical stenosis POSTOPERATIVE DIAGNOSIS: same OPERATION: Robotic assisted total laparoscopic hysterectomy with bilateral salpingectomy and lysis of adhesions SURGEON: DAKSHA PIKE 1ST DASHBOARD DEVELOPER: ELMO MARIE ANESTHESIA: GA TISSUE REMOVED OR ALTERED: Uterus cervix and bilateral fallopian tubes COMPLICATIONS: Patient was taken to the operating room prepared and draped in normal sterile fashion in dorsolithotomy position. Under sterile conditions a Vasquez catheter was placed to gravity. Speculum was placed into the vagina and the cervix was grasped on the anterior lip with a single-tooth tenaculum. The cervix was then dilated to accommodate a medium V care uterine manipulator. Manipulator was placed gloves were changed and attention was turned to the upper portion of the case. A 2-1/2 cm umbilical skin incision was made 11 blade and this was carried through to the underlying layer of fascia with the same 11 blade. It was grasped to Kurt's acted with Alex's. Peritoneal cavity was entered bluntly. A GelPort was placed in a normal fashion the camera port and air seal in the appropriate locations. Peritoneal cavity was then inflated with approximately 2 L of CO2 gas. The camera was then introduced into the peritoneal cavity through the camera port and the patient was placed in steep Trendelenburg. The above findings were noted. Under direct visualization two 5 mm ports were placed approximately 10 cm on either side of the umbilicus. A blunt probe was placed and the filmy adhesions of the posterior lower uterine segent to the rectal mucosa was blunt dissected. The robot was then docked with the vessel sealer placed on the patient's left and the monopolar scissors placed placed on the patient's right. I then unscrubbed and set at the robotic console beginning with the left adnexa fallopian tube was transected from the uterus using the vessel sealer and monopolar scissors as needed. The fallopian tube was then removed through the assistance port. The ovarian ligament was then transected using the vessel sealer. The uterine artery was skeletonized using blunt dissection and ligated using the vessel sealer down to the level of the external cervical os. The bladder flap was then begun using monopolar scissors and blunt dissection over the V care cup noted through the mucosa. Attention was then turned to the right adnexa where the fallopian tube was transected in a similar fashion. The utero-ovarian ligament was transected using the vessel sealer. The Uterine artery was then transected using the vessel sealer and skeletonized using blunt dissection. The vessel sealer was again used to completely transect the uterine artery down to the level of the external cervical os. The bladder flap was completed using similar sharp and blunt dissection. Once the bladder was felt to be adequately away from the lower uterine segment, the colpotomy was begun on the anterior aspect of the cervix following the outline of the V care cup mucosa. The cup was followed in a circumferential fashion completely around the cervix estimate was completely freed. The specimen was then removed through the vaginal defect. The instruments were then changed to a Prateek needle petroleum transport driver and pro-grasp. AV lock needle was introduced through the assistance port. The lock needle was used to close the vaginal cuff and hemostasis. The needle was then removed through the assistance port. The peritoneal cavity was carefully inspected the ureters were noted to both be peristalsing and there was no signs of hydroureter. The robot was then undocked. The fascia was closed at the umbilical skin incision seen 0 Vicryl 3 skin incisions were closed using 4-0 Vicryl. Sponge lap and needle counts were correct x2 and the patient was taken to recovery in stable condition.
[2019-06-27] MEDS ORDERED: INFLUENZA QUAD (6MOS+) 2019-20 VAC 0.5 ML SYR IM ONE (12:13)
[2019-06-27] MEDS ORDERED: KETOROLAC TROMETHAMINE INJ/PF 30 MG/1 ML SDV IV SCH ×2 (14:00→18:00)
[2019-06-27] MEDS: RINGERS SOLUTION,LACTATED 1,000 ML IV PRN (15:54)
[2019-06-27] MEDS: OXYCODONE-ACETAMINOPHEN 5-325 MG TABLET PO PRN ×2 (17:00→22:21)
[2019-06-27] MEDS: KETOROLAC TROMETHAMINE INJ/PF 30 MG/1 ML SDV IV SCH (18:29)
[2019-06-27] MEDS ORDERED: ACETAMINOPHEN 1,000 MG/100 ML RTUPB IV ONE ×2 (19:00)
[2019-06-28] MEDS: RINGERS SOLUTION,LACTATED 1,000 ML IV PRN ×2 (00:14→06:31)
[2019-06-28] MEDS: KETOROLAC TROMETHAMINE INJ/PF 30 MG/1 ML SDV IV SCH (02:07)
[2019-06-28 06:10] LABS: HEMATOCRIT 35.6 % (36.0-47.0); HEMOGLOBIN 12.1 g/dL (12.0-15.5); MEAN CORPUSCULAR HEMOGLOBIN 29.6 pg (27.0-33.4); MEAN CORPUSCULAR HGB CONC 34.1 g/dL (32.0-36.0); MEAN CORPUSCULAR VOLUME 87 fl (80-97); PLATELET COUNT 302 10^3/uL (150-450); RED CELL DISTRIBUTION WIDTH 13.7 % (11.5-14.0); WHITE BLOOD COUNT 9.4 10^3/uL (4.0-10.5)
[2019-06-28] MEDS: OXYCODONE-ACETAMINOPHEN 5-325 MG TABLET PO PRN (06:28)
--- NOTE | 2019-06-28 07:04 | PDOC DISCHARGE SUMMARY ---
Impression - Admit/DC Date/PCP Admission Date/Primary Care Provider: CHRISTIE HOFFMANN PA-C Discharge Date: 06/28/19 - Discharge Diagnosis (1) Abnormal uterine bleeding Is this a current diagnosis for this admission?: Yes (2) Pelvic pain Is this a current diagnosis for this admission?: Yes - Assessment Summary: underwent RATLH with bilateral salpingectomy. unremarkable postoperative course. voiding normally and tolerating regular diet. - Additional Information Resuscitation Status: Full Code Discharge Diet: As Tolerated Discharge Activity: Balance Activity w/Rest, No Driving, No Lifting Over 10 Pounds, No Lifting/Push/Pulling, Pelvic Rest, No tub bath Referrals: CHRISTIE HOFFMANN PA-C [Primary Care Provider] - Prescriptions: Oxycodone HCl/Acetaminophen [Percocet 5-325 mg Tablet] 1 tab PO Q4HP PRN #30 tablet PRN Reason: For Pain Scale 4-5 Ibuprofen [Motrin 800 mg Tablet] 800 mg PO Q8HP PRN #60 tablet PRN Reason: Home Medications: Sumatriptan Succinate 50 mg PO ASDIR PRN #10 tablet 01/02/17 Ibuprofen [Motrin 800 mg Tablet] 800 mg PO BID 05/28/19 Esomeprazole Magnesium [Nexium] 1 dose PO DAILY 06/19/19 Ibuprofen [Motrin 800 mg Tablet] 800 mg PO Q8HP PRN #60 tablet 06/28/19 Oxycodone HCl/Acetaminophen [Percocet 5-325 mg Tablet] 1 tab PO Q4HP PRN #30 tablet 06/28/19 History of Present Illiness History of Present Illness: HIGINIO RODRIGUEZ is a 44 year old female Physical Exam - Physical Exam Vital Signs: Temp Pulse Resp BP Pulse Ox 97.5 F 68 16 108/43 L 97 06/28/19 03:26 06/28/19 03:26 06/28/19 03:26 06/28/19 03:26 06/28/19 03:26 Intake & Output 06/27/19 06/28/19 06/29/19 06:59 06:59 06:59 Intake Total 4485 Output Total 1025 Balance 3460 Weight 104 kg Results Laboratory Results: WBC 9.4 10^3/uL (4.0-10.5) 06/28/19 05:10 RBC 4.10 10^6/uL (3.72-5.28) 06/28/19 05:10 Hgb 12.1 g/dL (12.0-15.5) 06/28/19 05:10 Hct 35.6 % (36.0-47.0) L 06/28/19 05:10 MCV 87 fl (80-97) 06/28/19 05:10 MCH 29.6 pg (27.0-33.4) 06/28/19 05:10 MCHC 34.1 g/dL (32.0-36.0) 06/28/19 05:10 RDW 13.7 % (11.5-14.0) 06/28/19 05:10 Plt Count 302 10^3/uL (150-450) 06/28/19 05:10 Sodium 138.2 mmol/L (137-145) 06/19/19 09:40 Potassium 4.7 mmol/L (3.6-5.0) 06/19/19 09:40 Chloride 101 mmol/L (98-107) 06/19/19 09:40 Carbon Dioxide 27 mmol/L (22-30) 06/19/19 09:40 Anion Gap 10 (5-19) 06/19/19 09:40 BUN 15 mg/dL (7-20) 06/19/19 09:40 Creatinine 0.58 mg/dL (0.52-1.25) 06/19/19 09:40 Est GFR ( Amer) > 60 (>60) 06/19/19 09:40 Est GFR (MDRD) Non-Af > 60 (>60) 06/19/19 09:40 Glucose 152 mg/dL (75-110) H 06/19/19 09:40 Calcium 9.7 mg/dL (8.4-10.2) 06/19/19 09:40 Total Bilirubin 0.5 mg/dL (0.2-1.3) 06/19/19 09:40 Direct Bilirubin 0.0 mg/dL (0.0-0.4) 06/19/19 09:40 Neonat Total Bilirubin Not Reportable 06/19/19 09:40 Neonat Direct Bilirubin Not Reportable 06/19/19 09:40 Neonat Indirect Bili Not Reportable 06/19/19 09:40 AST 17 U/L (14-36) 06/19/19 09:40 ALT 17 U/L (<35) 06/19/19 09:40 Alkaline Phosphatase 77 U/L (38-126) 06/19/19 09:40 Total Protein 7.3 g/dL (6.3-8.2) 06/19/19 09:40 Albumin 4.2 g/dL (3.5-5.0) 06/19/19 09:40 Urine Color YELLOW 06/19/19 09:40 Urine Appearance SLIGHTLY-CLOUDY 06/19/19 09:40 Urine pH 5.0 (5.0-9.0) 06/19/19 09:40 Ur Specific [place] 1.028 06/19/19 09:40 Urine Protein NEGATIVE mg/dL (NEGATIVE) 06/19/19 09:40 Urine Glucose (UA) NEGATIVE mg/dL (NEGATIVE) 06/19/19 09:40 Urine Ketones NEGATIVE mg/dL (NEGATIVE) 06/19/19 09:40 Urine Blood MODERATE (NEGATIVE) H 06/19/19 09:40 Urine Nitrite NEGATIVE (NEGATIVE) 06/19/19 09:40 Urine Bilirubin NEGATIVE (NEGATIVE) 06/19/19 09:40 Urine Urobilinogen NEGATIVE mg/dL (<2.0) 06/19/19 09:40 Ur Leukocyte Esterase NEGATIVE (NEGATIVE) 06/19/19 09:40 Urine WBC (Auto) 3 /HPF 06/19/19 09:40 Urine RBC (Auto) 1 /HPF 06/19/19 09:40 Squamous Epi Cells Auto 3 /HPF 06/19/19 09:40 Urine Mucus (Auto) OCC /LPF 06/19/19 09:40 Urine Ascorbic Acid NEGATIVE (NEGATIVE) 06/19/19 09:40 Urine HCG, Qual NEGATIVE (NEGATIVE) 06/27/19 05:45 Blood Type B NEGATIVE 06/27/19 06:09 Antibody Screen NEGATIVE 06/27/19 06:09 Stroke Is this a Stroke Patient?: No Acute Heart Failure - Is this a Heart Failure Patient?: No
[2019-06-28] MEDS ORDERED: IBUPROFEN 800 MG TABLET PO PRN ×2 (08:00→14:00)
[2019-06-28 11:01] VITALS: BP 158/68
== END 2019-06-28 11:20 | disposition home or self-care (01) ==
LOC: OROUT 05:30 → 2N 10:52 → OROUT 06-28 11:20
PROVIDERS: ATTEND Obstetrics & Gynecology
DX: R10.2 Pelvic and perineal pain (principal); N93.9 Abnormal uterine and vaginal bleeding, unspecified; N73.6 Female pelvic peritoneal adhesions (postinfective); N88.2 Stricture and stenosis of cervix uteri; N80.0 Endometriosis of uterus; N83.8 Other noninflammatory disorders of ovary, fallopian tube and broad ligament; Z88.5 Allergy status to narcotic agent; Z88.0 Allergy status to penicillin; Z88.2 Allergy status to sulfonamides
CPT/HCPCS: 58571; S2900; 36415; 80053; 81001; 81025; 840; 85027; 86850; 86900; 86901; 88307; 90686; A4649; J0131; J1170; J1580; J1885; J2250; J2270; J2405; J2550; J2704; J3010; J3490; J7060; J7120

== ENCOUNTER → 2020-06-12 | Outpatient (CLI) | payer BC, OTHER ==
[2020-06-12 12:50] LABS: ABSOLUTE EOSINOPHILS # (AUTO) 0.1 10^3/uL (0.0-0.6); ABSOLUTE LYMPHOCYTES (AUTO) 1.8 10^3/uL (0.5-4.7); ABSOLUTE MONOCYTES (AUTO) 0.6 10^3/uL (0.1-1.4); ABSOLUTE NEUT (AUTO) 8.8 10^3/uL (1.7-8.2); BASOPHILS % (AUTO) 0.4 % (0-2); EOSINOPHILS % (AUTO) 1.1 % (0-6); HEMATOCRIT 39.6 % (36.0-47.0); HEMOGLOBIN 13.4 g/dL (12.0-15.5); LYMPHOCYTES % (AUTO) 15.6 % (13-45); MEAN CORPUSCULAR HGB CONC 33.8 g/dL (32.0-36.0); MEAN CORPUSCULAR VOLUME 86 fl (80-97); MONOCYTES % (AUTO) 5.2 % (3-13); PLATELET COUNT 372 10^3/uL (150-450); RED BLOOD COUNT 4.61 10^6/uL (3.72-5.28); RED CELL DISTRIBUTION WIDTH 13.8 % (11.5-14.0); SEGMENTED NEUTROPHILS % (AUTO) 77.7 % (42-78); TOTAL CELLS COUNTED % (AUTO) 100 %; WHITE BLOOD COUNT 11.3 10^3/uL (4.0-10.5)
== END ==
LOC: OD 11:44
PROVIDERS: ATTEND Internal Medicine Gastroenterology
DX: R10.32 Left lower quadrant pain (principal)
CPT/HCPCS: 36415; 85025

== ENCOUNTER 2020-06-13 08:37 | Emergency (ER) | payer SELFPAY ==
--- NOTE | 2020-06-13 08:54 | ER Document Report ---
ED General - General Chief Complaint: Abdominal Pain Stated Complaint: LOWER ABDOMINAL PAIN/NAUSEA/DIARRHEA Time Seen by Provider: 06/13/20 08:53 Primary Care Provider: RAFIA MATUTE MD [ACTIVE STAFF] - Follow up as needed BRIDGET PELLETIER MD [ACTIVE STAFF] - Follow up as needed TRAVEL OUTSIDE OF THE [place] IN LAST 30 DAYS: No - HPI Notes: 45-year-old female with a history of diverticulitis, IBS, esophageal stricture presents to the emergency room today for evaluation of left lower quadrant abdominal pain that started a week and a half ago, states it comes in waves roughly 3 out of 5, sharp waves Reports her last bowel movement was last night, she has had nausea vomiting and chills the last 3 days. Patient states that she did feel constipated throughout the last 5 days and has tried MiraLAX every other night, she states she did have loose stool from the MiraLAX last night. Reports she did have a complete hysterectomy done. 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 Patient states that she was diagnosed with diverticulitis 2 years ago. Patient has tried [id number] ibuprofen 800 mg multiple times a day to help with her pain. Denies any vaginal bleeding vaginal discharge. Denies fevers, chest p ain,palpitations, shortness of breath, dyspnea, diarrhea, hematuria vision changes, speech changes, LH, dizziness, syncope, headaches, wheezing, ST, URI, neck pain, weakness, bowel or bladder dysfunction, saddle anesthesia, numbness or tingling in bilateral upper or lower extremities equally, muscle paralysis, weakness in bilateral upper or lower extremities equally or rash. Denies IV drug use. - Related Data Allergies/Adverse Reactions: Penicillins Allergy (Verified 06/19/19 09:24) breathing difficulty Sulfa (Sulfonamide Antibiotics) Allergy (Verified 06/19/19 09:24) breathing difficulty tramadol [Tramadol] Allergy (Verified 06/19/19 09:24) itching Past Medical History - General Information source: Patient - Social History Smoking Status: Never Smoker Frequency of alcohol use: Occasional Drug Abuse: None Family History: Arthritis, CAD - Mother had first heart attack at age 36 and proceeded to have 3, father has had 4 heart attacks., DM - Past Medical History Cardiac Medical History: Reports: Hx Hypercholesterolemia Denies: Hx Coronary Artery Disease, Hx Heart Attack, Hx Hypertension Pulmonary Medical History: Denies: Hx Asthma, Hx Bronchitis, Hx COPD, Hx Pneumonia Neurological Medical History: Reports: Hx Migraine. Denies: Hx Cerebrovascular Accident, Hx Seizures Endocrine Medical History: Reports: Hx Hypothyroidism Renal/ Medical History: Denies: Hx Peritoneal Dialysis Musculoskeletal Medical History: Denies Hx Arthritis, Reports Hx Musculoskeletal Trauma Psychiatric Medical History: Reports: Hx Anxiety - with panic attacks Past Surgical History: Reports: Hx Cholecystectomy, Hx Orthopedic Surgery - left knee, Hx Tonsillectomy - Immunizations Immunizations up to date: Yes Hx Diphtheria, Pertussis, Tetanus Vaccination: Yes Review of Systems - Review of Systems Constitutional: No symptoms reported EENT: No symptoms reported Cardiovascular: No symptoms reported Respiratory: No symptoms reported Gastrointestinal: See HPI Genitourinary: No symptoms reported Female Genitourinary: No symptoms reported Musculoskeletal: No symptoms reported Skin: No symptoms reported Hematologic/Lymphatic: No symptoms reported Neurological/Psychological: No symptoms reported Physical Exam - Vital signs Vitals: Temp Pulse Resp BP Pulse Ox 98.6 F 108 H 20 150/77 H 100 06/13/20 08:42 06/13/20 08:42 06/13/20 08:42 06/13/20 08:42 06/13/20 08:42 - Notes Notes: MEDICATIONS: I agree with the patient medications as charted by the RN. ALLERGIES: I agree with the allergies as charted by the RN. PAST MEDICAL HISTORY/PAST SURGICAL HISTORY: Reviewed and agree as charted by RN. SOCIAL HISTORY: Reviewed and agree as charted by RN. FAMILY HISTORY: No significant familial comorbid conditions directly related to patient complaint EXAM: Reviewed vital signs as charted by RN. PHYSICAL EXAMINATION: reviewed vital signs by RN GENERAL: Well-appearing, well-nourished and in no acute distress. HEAD: Atraumatic, normocephalic. EYES: Pupils equal round and reactive to light, extraocular movements intact, conjunctiva are normal. ENT: Nares patent, oropharynx clear without exudates. Moist mucous membranes. NECK: Normal range of motion, supple without lymphadenopathy LUNGS: Breath sounds clear to auscultation bilaterally and equal. No wheezes rales or rhonchi. HEART: Regular rate and rhythm without murmurs ABDOMEN: Soft, left lower quadrant tenderness on palpation nondistended abdomen. No guarding, no rebound. No masses appreciated. No CVA tenderness appreciated bilaterally Female : deferred Musculoskeletal: Normal range of motion, no pitting or edema. No cyanosis. NEUROLOGICAL: Cranial nerves grossly intact. Normal speech, normal gait. Normal sensory, motor exams PSYCH: Normal mood, normal affect. SKIN: Warm, Dry, normal turgor, no rashes or lesions noted. Course - Re-evaluation Re-evalutation: 06/13/20 13:12 Afebrile vital stable no distress. Nurses notes reviewed. CBC with a slight leukocytosis of 12.0, CMP negative for hepatic or renal dysfunction, no electrolyte disturbances. Urinalysis unremarkable. Patient given IV fluids, morphine and Zofran for pain and nausea. Vital signs redone, they are stable. CT abdomen pelvis with IV and oral contrast shows acute sigmoid diverticulitis without perforation per radiology. Discussed with patient that we will start her on outpatient antibiotic therapy, first dose given today of ciprofloxacin and Flagyl for 10-day course twice daily for both antibiotics. Advised to follow a bland diet. We will give her a sixpack of [place] to go home with, advised to not drive, drink alcohol or operate while taking medication as it can cause sedation or impairment of cognitive functions. Advised to also not drink alcohol while taking Flagyl as this can cause nausea and vomiting. After performing a Medical Screening Examination, I estimate there is LOW risk for ACUTE APPENDICITIS, BOWEL OBSTRUCTION, ACUTE CHOLECYSTITIS, PERFORATED DIVERTICULITIS, INCARCERATED HERNIA, PANCREATITIS, PELVIC INFLAMMATORY DISEASE, PERFORATED ULCER, ECTOPIC , or TUBO-OVARIAN ABSCESS, thus I consider the discharge disposition reasonable. Also, there is no evidence or peritonitis, sepsis, or toxicity. I have reevaluated this patient multiple times and no significant life threatening changes are noted. The patient and I have discussed the diagnosis and risks, and we agree with discharging home with close follow- up with the understanding that symptoms and presentations can change. We also discussed returning to the Emergency Department immediately if new or worsening symptoms occur. We have discussed the symptoms which are most concerning (e.g., bloody stool, fever, changing or worsening pain, vomiting) that necessitate immediate return. 06/13/20 13:52 - Vital Signs Vital signs: Temp Pulse Resp BP Pulse Ox 98.3 F 77 20 151/73 H 100 06/13/20 12:51 06/13/20 12:51 06/13/20 12:51 06/13/20 12:51 06/13/20 12:51 - Laboratory Results Result Diagrams: 06/13/20 09:45 06/13/20 09:45 Laboratory Results Interpreted: 06/13/20 06/13/20 06/13/20 09:45 09:45 09:45 WBC 12.0 H Lymph % (Auto) 9.6 L Absolute Neuts (auto) 10.0 H Seg Neutrophils % 83.2 H Sodium 136.3 L Glucose 136 H ALT 50 H Urine Protein 30 H Urine Ketones 20 H Critical Laboratory Results Reviewed: No Critical Results - Radiology Results Critical Radiology Results Reviewed: No Critical Results Discharge - Discharge Clinical Impression: Diverticulitis Condition: Stable Disposition: HOME, SELF-CARE Instructions: Diverticulitis ([facility]) Additional Instructions: You were seen today for focal pain in your left lower quadrant. Your labs, exam, and imaging suggest a diagnosis of diverticulitis. This is an inflammation of a part of your colon. You are being started on antibiotics to treat this infection and inflammation. Please take all of them as directed and complete them even if your symptoms resolve. Please follow-up with your primary care physician within the next 48 hours. Return to the emergency department immediately if you develop worsening pain, persistent vomiting, began having bloody stools, develop a fever of greater than 101F, or have any other symptoms that are concerning to you. Prescriptions: Ciprofloxacin HCl [Cipro 500 mg Tablet] 500 mg PO BID #20 tablet Metronidazole [Flagyl] 500 mg PO BID #20 tablet Forms: Return to Work Referrals: RAFIA MATUTE MD [ACTIVE STAFF] - Follow up as needed BRIDGET PELLETIER MD [ACTIVE STAFF] - Follow up as needed
[2020-06-13] MEDS ORDERED: MORPHINE SULFATE 10 MG/ML INJ IV ONE (09:32)
[2020-06-13] MEDS ORDERED: ONDANSETRON HCL INJ/PF 4 MG/2 ML SDV IV ONE (09:32)
[2020-06-13] MEDS ORDERED: NORMAL SALINE 1000 ML 1,000 ML IV ONE (09:32)
[2020-06-13 10:09] LABS: ABSOLUTE EOSINOPHILS # (AUTO) 0.2 10^3/uL (0.0-0.6); ABSOLUTE LYMPHOCYTES (AUTO) 1.2 10^3/uL (0.5-4.7); ABSOLUTE MONOCYTES (AUTO) 0.7 10^3/uL (0.1-1.4); BASOPHILS % (AUTO) 0.4 % (0-2); EOSINOPHILS % (AUTO) 1.4 % (0-6); HEMATOCRIT 39.6 % (36.0-47.0); HEMOGLOBIN 13.5 g/dL (12.0-15.5); LYMPHOCYTES % (AUTO) 9.6 % (13-45); MEAN CORPUSCULAR HGB CONC 34.1 g/dL (32.0-36.0); MEAN CORPUSCULAR VOLUME 85 fl (80-97); MONOCYTES % (AUTO) 5.4 % (3-13); PLATELET COUNT 376 10^3/uL (150-450); RED BLOOD COUNT 4.64 10^6/uL (3.72-5.28); RED CELL DISTRIBUTION WIDTH 13.4 % (11.5-14.0); SEGMENTED NEUTROPHILS % (AUTO) 83.2 % (42-78); TOTAL CELLS COUNTED % (AUTO) 100 %
[2020-06-13 10:19] LABS: APPEARANCE,URINE SLIGHTLY-CLOUDY; BILIRUBIN,URINE NEGATIVE (NEGATIVE); COLOR,URINE YELLOW; GLUCOSE, URINE NEGATIVE (NEGATIVE); KETONES,URINE 20 mg/dL (NEGATIVE); LEUKOCYTE ESTERASE,URINE NEGATIVE (NEGATIVE); NITRITE,URINE NEGATIVE (NEGATIVE); PROTEIN,URINE 30 mg/dL (NEGATIVE); URINE SPECIFIC GRAVITY 1.025; UROBILINOGEN,URINE NEGATIVE mg/dL (<2.0)
[2020-06-13 10:23] LABS: ALBUMIN 3.9 g/dL (3.5-5.0); ALKALINE PHOSPHATASE 77 U/L (38-126); ANION GAP 6 (5-19); ASPARTATE AMINO TRANSFERASE 32 U/L (14-36); BILIRUBIN,DIRECT 0.1 mg/dL (0.0-0.4); BILIRUBIN,TOTAL 0.8 mg/dL (0.2-1.3); BLOOD UREA NITROGEN 10 mg/dL (7-20); CALCIUM 9.4 mg/dL (8.4-10.2); CARBON DIOXIDE 28 mmol/L (22-30); CHLORIDE 102 mmol/L (98-107); GLUCOSE 136 mg/dL (75-110); POTASSIUM 4.1 mmol/L (3.6-5.0)
[2020-06-13 12:53] VITALS: BP 151/73
[2020-06-13] MEDS ORDERED: CIPROFLOXACIN HCL 500 MG TABLET PO ONE (13:07)
[2020-06-13] MEDS ORDERED: METRONIDAZOLE 500 MG TABLET PO ONE (13:07)
[2020-06-13] MEDS ORDERED: HYDROCODONE/ACETAMINOPHEN 5-325 MG (6 TAB/ER DISP) PO PRN (13:14)
--- NOTE | 2020-06-13 13:15 | RADIOLOGY REPORT (SQ) ---
EXAM DESCRIPTION: CT ABD/PELVIS WITH IV ORAL IMAGES COMPLETED DATE/TIME: 06/13/2020 11:48 am REASON FOR STUDY: LLQ abd pain, +nausea x 1.5w, hx diverticulitis COMPARISON: 06/13/2018 TECHNIQUE: CT scan of the abdomen and pelvis performed using helical scanning technique with dynamic intravenous contrast injection. No oral contrast. Images reviewed with lung, soft tissue, and bone windows. Reconstructed coronal and sagittal MPR images reviewed. Delayed images for evaluation of the urinary system also acquired. All images stored on PACS. All CT scanners at this facility use dose modulation, iterative reconstruction, and/or weight based d osing when appropriate to reduce radiation dose to as low as reasonably achievable (ALARA). [facility]: Dose Right [facility]: CareDose [facility]: Dose Right [facility]: Teradose 4D [facility]: inthinc CONTRAST TYPE AND DOSE: contrast/concentration: Isovue 350.00 mmol/ml; Total Contrast Delivered: 98. 9 ml; Total Saline Delivered: 37.0 ml RENAL FUNCTION: GFR > 60. RADIATION DOSE: CT Rad equipment meets quality standard of care and radiation dose reduction techniq ues were employed. CTDIvol: 15.9 - 19.6 mGy. DLP: 2037 mGy-cm.. LIMITATIONS: None. FINDINGS: LOWER CHEST: No significant findings. No nodules or infiltrates. LIVER: There is mild diffuse hepatic steatosis. Liver has normal size and contour. No focal hepatic mass. Hepatic and portal veins are patent. No biliary ductal dilation. SPLEEN: Normal size. No focal lesions. PANCREAS: No masses. No significant calcifications. No adjacent inflammation or peripancreatic fluid collections. Pancreatic duct not dilated. GALLBLADDER: Surgically absent. ADRENAL GLANDS: No significant masses or asymmetry. RIGHT KIDNEY AND URETER: No solid masses. No significant calcifications. No hydronephrosis or hyd roureter. LEFT KIDNEY AND URETER: No solid masses. No significant calcifications. No hydronephrosis or hydr oureter. AORTA AND VESSELS: No aneurysm. No dissection. Renal arteries, SMA, celiac without stenosis. RETROPERITONEUM: No retroperitoneal adenopathy, hemorrhage or masses. BOWEL AND PERITONEAL CAVITY: There is acute inflammatory change involving a diverticulum in the sigmo id colon in the left anterior abdomen. No perforation or peritoneal abscess. Reactive colon wall th ickening. No bowel obstruction. No colonic mass. Trace ascites in the left pericolic gutter and pe lvis. APPENDIX: Normal. PELVIS: No mass. No free fluid. Normal bladder. ABDOMINAL WALL: No masses. No hernias. BONES: No significant or acute findings. OTHER: No other significant finding. IMPRESSION: 1. Acute sigmoid diverticulitis. No perforation or peritoneal abscess. Small amount of fluid and re active colon wall thickening. 2. Mild hepatic steatosis. COMMENT: Findings discussed with Trixie HOBBS 06/13/2020 at 1302 hours Eastern time TECHNICAL DOCUMENTATION: JOB ID: [id number] Quality ID # [id number]: Final reports with documentation of one or more dose reduction techniques (e.g., Au tomated exposure control, adjustment of the mA and/or kV according to patient size, use of iterative reconstruction technique) 2010 [employer]- All Rights Reserved Reading location - IP/workstation name: [email or web address]
== END 2020-06-13 13:49 | disposition home or self-care (01) ==
LOC: ER 08:37
DX: K57.92 Diverticulitis of intestine, part unspecified, without perforation or abscess without bleeding (principal); R10.30 Lower abdominal pain, unspecified; R19.7 Diarrhea, unspecified; R10.32 Left lower quadrant pain; R11.2 Nausea with vomiting, unspecified; Z79.899 Other long term (current) drug therapy; Z88.0 Allergy status to penicillin; Z88.2 Allergy status to sulfonamides; Z88.8 Allergy status to other drugs, medicaments and biological substances
CPT/HCPCS: 99285; 96361; 96374; 96375; 36415; 84702; 83690; 85025; 80053; 81001; 74177; J2270; J2405; J7030